=== PATIENT | male | born 1930 | race Caucasian/White ===

== ENCOUNTER 2016-05-30 10:15 | Day surgery (SDC) | payer MEDICARE, BC ==
--- NOTE | 2016-05-29 10:37 | NUR ---
NN PT STATES HE WAS NOT INSTRUCTED TO STOP TAKING HIS COUMADIN. I LOOKED IN HIS WRITTEN CHART FROM DR. MONTANEZ OFFICE, WHICH DID STATE THE PT WILL NOT NEED TO STOP WARFARIN FOR THIS SURGERY, SIGNED BY DR. DEL TORO.
--- NOTE | 2016-05-29 11:19 | NUR ---
KRISTYN PT HAS A [employer] IMPLANTABLE PACEMAKER/DEFIB. PT DOES NOT KNOW THE MODEL NUMBER. GENERAL INFORMATION PLACED IN CHART ABOUT [employer] PACEMAKER/DEFIB. Addendum: 05/29/16 at 1123 by JEFF MCKEON RN PT SEES DR. MANDEL [phone] Addendum: 05/29/16 at 1135 by JEFF MCKEON RN CARDIAC CLEARANCE OBTAINED FROM DR. YUNG MARTINS IN [place], [place]. [phone].
[~2016-05-30] VITALS: Ht 182.9 cm; Wt 67.9 kg
[~2016-05-30 10:15] MED LIST: CARV3.1227 PO; CEFAZOLIN 1 GRAM INJECTION IV ONE; DIGO250T72 PO; FENTANYL 100mcg/2ml INJECTION IV PRN; FURO40TA70 PO; LIDOCAINE 1% (10mg/ml) 2ml SDV INJ ONE; LR 1,000 ML IV SCH; MIDAZOLAM 5mg/5ml INJECTION IV PRN; MULT-1243 PO; POTA20TA69 PO; RANI150T7 PO; SIMV20TA80 PO; SULF1TAB42 PO; TAMS0.4C20 PO; VITA1TAB21 PO; WARF3TAB24 PO
[2016-05-30 10:38] VITALS: BP 141/72; PULSE 80; RESP 17; TEMP 98.1; O2SAT 99; Ht 182.9 cm; Wt 67.9 kg
--- OUTSIDE RECORDS SUMMARY | 2016-05-30 10:45 | XMS REPORT | Referral Summary ---
Author Author [facility] Organization [facility] Address Unknown Phone Unavailable Care Team Providers Care Jr. Systems Administrator Name Role Phone Brian Marrero Primary Care Physician [phone] Encounter VC Date(s): 11/16/14 - 11/16/14 [facility] [address] [place] [address] [place] [id number] Discharge Diagnosis: Open wound of arm Discharge Diagnosis: Post-operative state Discharge Diagnosis: History of basal cell carcinoma of skin Discharge Disposition: 01-Home or Self Care Attending Physician: Meliton Martínez MD Admitting Physician: Meliton Martínez MD Referring Physician: Brian Marrero MD Vital Signs Most recent to 1 oldest [Reference Range]: Temperature Tympanic 36.2 degC [36.6-38.1 degC] *LOW* (11/16/14 1:02 PM) Problem List Condition Effective Dates Status Health Status Informant Atrial fibrillation Active (disorder)(Confirmed ) Atrial Resolved fibrillation(Confirm ed) Benign essential Active hypertension (disorder)(Confirmed ) BPH (benign Resolved prostatic hypertrophy)(Confirm ed) CAD (coronary artery Resolved disease)(Confirmed) Heart Active failure(Confirmed) Hyperlipidemia(Confi Resolved rmed) Hypertension(Confirm Resolved ed) Lymphoma Resolved (clinical)(Confirmed ) Basal cell 01/29/14 Active cancer(Confirmed)1 Methicillin Active resistant Staphylococcus aureus(Confirmed)2 Pure Active hypercholesterolemia (disorder)(Confirmed ) 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 Allergies, Adverse Reactions, Alerts No Known Medication Allergies Medications carvedilol 3.125 mg oral tablet tabs, Oral, BID, 0 Refill(s) Start Date: 10/07/13 Status: Ordered Centrum Silver 1 caps, Oral, Daily, 0 Refill(s) Start Date: 09/07/14 Status: Ordered Coumadin 2 mg oral tablet tabs, Oral, Daily, 0 Refill(s) Start Date: 10/07/13 Status: Ordered digoxin 250 mcg (0.25 mg) oral tablet tabs, Oral, Daily, 0 Refill(s) Start Date: 10/07/13 Status: Ordered ibrutinib 140 mg oral capsule 420 mg 3 caps, Oral, Daily, 0 Refill(s) Start Date: 09/07/14 Status: Ordered Lasix 40 mg oral tablet mg tabs, Oral, BID, 0 Refill(s) Start Date: 10/07/13 Status: Ordered lisinopril 2.5 mg oral tablet See Instructions, Take 1 tablet by mouth every day., # 30 unknown unit, 1 Refill (s), eRx: [facility], Take 1 tablet by mouth every day. Start Date: 10/01/13 Status: Ordered Ocuvite 1 tabs, Oral, Daily, 0 Refill(s) Start Date: 09/07/14 Status: Ordered potassium chloride 20 mEq oral tablet, extended release tabs, Oral, BID, 0 Refill(s) Start Date: 02/23/14 Status: Ordered Protonix 40 mg, Oral, Daily, 0 Refill(s) Start Date: 09/07/14 Status: Ordered ranitidine 150 mg oral tablet 1 tabs, Oral, BID, 0 Refill(s) Start Date: 10/07/13 Status: Ordered simvastatin 20 mg oral tablet tabs, Oral, Bedtime (once a day), 0 Refill(s) Start Date: 10/07/13 Status: Ordered tamsulosin 0.4 mg oral capsule See Instructions, TAKE 1 CAPSULE AT BEDTIME, # 30 caps, eRx: [facility], TAKE 1 CAPSULE AT BEDTIME Start Date: 04/13/15 Status: Ordered Vitamin B Complex 100 1 tabs, Oral, Daily, 0 Refill(s) Start Date: 09/07/14 Status: Ordered Results No data available for this section Immunizations No data available for this section Procedures Procedure Date Related Diagnosis Body Site Excision of basal cell carcinoma1 09/20/14 Full thickness skin graft2 01/29/14 Excision of malignant lesion of skin of 06/02/13 extremities3 Completely excised 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 It begins in the basal cells, which are at the bottom of the outer skin layer (epidermis). CAUSES Sun exposure is the most common cause of basal cell carcinoma. Basal cell carcinoma occurs most often on parts of the body that are frequently exposed to the sun, including the: Scalp. Ears. Neck. Face. Arms. Backs of the hands. Legs. However, basal cell carcinoma can occur anywhere on the body. Rarely, tumors develop on areas not exposed to the sun. Other causes of basal cell carcinoma can include: Exposure to arsenic. Exposure to radiation. Certain genetic syndromes, such as xeroderma pigmentosum. RISK FACTORS People at highest risk for basal cell carcinoma include those with: Fair skin. Blonde or red hair. Blue, green, or campoverde eyes. Childhood freckling. Factors that increase your risk for basal cell carcinoma include: Sun exposure over long periods of time. Childhood sun exposure appears to be a more significant factor than sun exposure as an adult. Repeated sunburns. Use of tanning beds. Having a weakened immune system. SYMPTOMS Five signs of basal cell carcinoma are: An open sore that bleeds, oozes, or crusts. The sore may remain open for 3 or more weeks. This can be an early sign of basal cell carcinoma. Basal cell carcinoma can mimic a pimple that will not heal. A reddish or irritated area which may crust, itch, or cause discomfort. This may occur on areas expose d to the sun. These patches might be easier felt than seen. A shiny, pearly, or translucent bump that is pink, red, or white. The bump may also be holder, black, or brown, especially in dark haired people. These bumps can be confused with moles. A pink growth with a slightly elevated, rolled border, and a crusted indentation in the center. As the growth slowly enlarges, tiny blood vessels may develop on the surface. A scar-like white, yellow, or waxy area that looks like shiny, stretched skin. It often has irregular borders. This may be a sign of more aggressive basal cell carcinoma. DIAGNOSIS Your caregiver may be able to tell what is wrong by doing a physical exam. Often , a tissue sample (biopsy) is also taken. The tissue is examined under a microscope. TREATMENT The treatment for basal cell carcinoma depends on the type, size, location, and number of tumors. Possible treatments include: Mohs surgery. This is a procedure done by a skin doctor (olive packer or Mohs surgeon) in his or her office. The cancerous cells are removed layer by layer. This treatment has a high cure rate. Surgical removal of the tumor. Freezing the tumor with liquid nitrogen (cryosurgery). Plastic surgery to remove the tumor, in the case of large tumors. Radiation. This may be used for tumors on the face. Photodynamic therapy. A chemical cream is applied to the skin and light exposure is used to activate the chemical. Chemical treatments, such as imiquimod cream and interferon injections. This may be used to remove superficial tumors with minimal scarring. Electrodesiccation and curettage. This involves alternately scraping and burning the tumor, using an electric current to control bleeding. Basal cell carcinoma can almost always be cured. It rarely spreads to other areas of the body (metastasizes). Basal cell carcinoma may come back at the same location (recur), but it can be treated again if this occurs. PREVENTION Avoid the sun between 10:00 a.m. and 4:00 pm when it is the strongest. Use a sunscreen or sunblock with a sun protection factor of 30 or greater. Apply sunscreen at least 30 minutes before exposure to the sun. Reapply sunscreen every 2 to 4 hours while you are outside, after swimming , and after excessive sweating. Always wear protective hats, clothing, and sunglasses with ultraviolet protection. Avoid tanning beds. HOME CARE INSTRUCTIONS Avoid unprotected sun exposure. Follow your caregiver's instructions for self-exams. Look for new spots or changes in your skin. Keep all follow-up appointments as directed by your caregiver. SEEK MEDICAL CARE IF: You notice any new spots or changes in your skin. You have had a basal cell carcinoma tumor removed and you notice a new growth in the same location. Document Released: 09/15/2003 Document Revised: 09/09/2012 Document Reviewed: [facility] Patient Information 2015 [employer] [facility]. This information is not intended to replace advice given to you by your health care provider. Make sure you discuss any questions you have with your health care provider. No follow up information was provided. Extracted from: Title: Office Visit Note Author: Meliton Martínez MD Date: 11/16/14 Assessment/Plan History of basal cell carcinoma of skin Ordered: Postoperative Est 45576 Open wound of arm Ordered: Postoperative Est [id number] Post-operative state Ordered: Postoperative Est [id number] Plan: Chemical cauterization. Local wound care. The area of hypergranulation was treated with Silver Nitrate. Wound was covered with Xeroform gauze. Instructions/supplies given to patient and . Small fishnet/Tubegauze utilized to hold dressing in place. Patient instructed to avoid use of tape to prevent further excoriation of skin
--- OUTSIDE RECORDS SUMMARY | 2016-05-30 10:45 | XMS REPORT | Continuity of Care Document ---
Author Author [facility] Organization [facility] Address Unknown Phone Unavailable Support Name Relationship Address Phone ALFONZO MO MD Caregiver [address] [place] [phone] ARIS LEA FACS, MD Caregiver [address] [place] [address] [address] [place] [phone] YUNG MARTINS Caregiver [address] [place] [address] [place] WHIT[place]IDE Next Of Kin [address] [facility] [address] [place], [place] [address] Insurance Providers Payer Name Policy Number Subscriber Name Relationship Medicare [id number] Jacobo Whiteside 19 Self [facility] [id number] Jacobo Whiteside 19 Self Advance Directives Directive Response Recorded Date/Time Ordered Resuscitation Status Full Code 01/28/14 10:23am Resuscitation Documents on File No 01/28/14 9:39am Problems No known problems or medical conditions. Medications Medication Dose Route Sig Days/Qty Instructions Order Date Discontinued Date Status Carvedilol 12.5 Mg PO TWICE A DAY 08/06/09 08/06/09 Discontinued Warfarin Sodium 2 Mg PO DAILY 04/28/09 06/12/09 Discontinued Diltiazem Hcl 240 Mg PO DAILY 05/09/08 04/28/09 Discontinued Tamsulosin Hcl 0.4 Mg PO BEDTIME 12/26/09 Active [[id number] [id number]] 125 Mcg PO DAILY 05/09/08 04/28/09 Discontinued Ascorbic Acid 250 Mg PO DAILY 07/25/09 08/06/09 Discontinued Multivitamins W-Minerals/Lut 0.5 Tab PO DAILY 08/06/09 09/13/09 Discontinued Digoxin 250 Mcg IJ DAILY 04/28/09 06/12/09 Discontinued Furosemide 40 Mg IJ DAILY 04/28/09 06/12/09 Discontinued Aspirin 81 Mg PO DAILY 08/06/09 09/13/09 Discontinued Simvastatin 20 Mg PO BEDTIME 12/26/09 Active Potassium Chloride 20 Meq PO DAILY 2 Qty 12/26/09 Active Furosemide 40 Mg PO DAILY 12/26/09 Active Digoxin 250 Mcg PO DAILY 12/26/09 Active Warfarin Sodium 1 Tab PO DAILY 08/06/09 08/06/09 Discontinued Magnesium 250 Mg PO DAILY 08/06/09 08/06/09 Discontinued Sulfamethoxazole/Trimethoprim 1 Tab PO TWICE A DAY 07/25/09 Discontinued Carvedilol 3.125 Mg PO DAILY 12/26/09 Active Warfarin Sodium 2 Mg PO DAILY 12/23/09 Active Magnesium 200 Mg PO TWICE A DAY 08/06/09 09/13/09 Discontinued Warfarin Sodium 2 Mg PO EVERY OTHER DAY 12/23/09 08/20/10 Discontinued Spironolactone 25 Mg PO DAILY 12/26/09 08/20/10 Discontinued Lisinopril 2.5 Mg PO DAILY 01/28/14 Active Ranitidine HCl 150 Mg PO BEDTIME Take 1 tablet, by mouth, 1 time a day ( at BEDTIME). 01/28/14 Active Ibrutinib 420 Mg PO GIVE AT NOON 01/28/14 Active Social History Social History Problem Response Recorded Date/Time Smoking Status Former smoker 01/28/2014 9:33am When did patient STOP smoking? AGE 40'S 01/28/2014 9:33am Chewing Tobacco Status No 01/28/2014 9:33am Hx Substance Use No 01/28/2014 9:33am Hx Alcohol Use Y OCCASIONALWINE 3X/WEEK 01/28/2014 9:33am Has the pt used tobacco in the last 12 months No 01/28/2014 9:33am Hospital Discharge Instructions No hospital discharge instructions. Plan of Care No plan of care. Functional Status No functional status results. Allergies, Adverse Reactions, Alerts Allergen Type Severity Reaction Status Last Updated No Known Drug Allergies Allergy Unknown Active 08/20/10 Immunizations Name Given Type Hx Influenza Vaccination Y FALL 2013 Historical Hx Pneumococcal Vaccination Y 2008 Historical Hx Influenza Vaccination Y FALL 2013 Historical Vital Signs Acute Vital Signs Vital Response Date/Time Temperature (Fahrenheit) 97.6 deg F (96.8 - 99.1) Temperature (Calculated Celsius) 36.45003 degrees C (36.0 - 37.3) Temperature Source Axillary Pulse Rate (adult) 84 bpm (60 - 100) Respiratory Rate 14 breaths/min (10 - 20) O2 Sat by Pulse Oximetry 97 % (90 - 100) Oxygen Delivery Method Room Air Blood Pressure 114/67 mm Hg Blood Pressure Source Automatic Cuff Height 6 ft 0 in Weight 158 lb Body Mass Index 21.0 kg/m^2 Results Test Source Date Result Interp. Ref. Range Comments AFB Broth Culture/Smear August 16, 2009 12:00am Sent out - Acid Fast Bacilli Culture (LAB) June 13, 2009 10:35am Sent out - -- - 06/14/09 1436 ---CUAFB previously reported as: SENT OUT Activated Partial Thromboplast Time August 24, 2010 11:30am 35.4 SEC DN 24 -36 Alanine Aminotransferase (ALT/SGPT) August 21, 2010 4:50am 34 U/L N 21-72 Albumin August 21, 2010 4:50am 2.9 G/DL L 3.5-5.0 Albumin/Globulin Ratio August 21, 2010 4:50am 1.1 RATIO N 1.1-2.2 Alkaline Phosphatase August 21, 2010 4:50am 156 U/L H 38-126 Anion Gap January 29, 2014 10:45am 8 MEQ/L N 5-15 COMMENT PRE-OP WILL CALL Aspartate Amino Transf (AST/SGOT) August 21, 2010 4:50am 32 U/L N 17-59 B-Type Natriuretic Peptide August 24, 2010 4:10am 1782 PG/ML H 15-100 BUN/Creatinine Ratio January 29, 2014 10:45am 13 RATIO N 6-26 COMMENT PRE-OP WILL CALL Band Neutrophils # February 10, 2010 11:15am 0.4 T/MM3 - COMMENT TO SCU AT 1200 Band Neutrophils % February 10, 2010 11:15am 5.0 % DN 0-6 COMMENT TO SCU AT 1200 Basophils # (Auto) January 29, 2014 10:45am 0.0 T/MM3 N 0-0.2 COMMENT PRE-OP WILL CALL Basophils # (Manual) February 23, 2009 8:39am 0.0 T/MM3 N 0-0.2 Basophils % (Manual) February 23, 2009 8:39am 0.0 % N 0-2 Basophils (%) (Auto) January 29, 2014 10:45am 0.3 % N 0-2 COMMENT PRE- OP WILL CALL Blood Urea Nitrogen January 29, 2014 10:45am 14.0 MG/DL N 9-20 COMMENT PRE-OP WILL CALL Body Fluid Amylase December 05, 2009 12:00am Sent out - Body Fluid Band Neutrophils December 05, 2009 12:00am 0 % - Body Fluid Basophils December 05, 2009 12:00am 0 % - Body Fluid Color December 05, 2009 12:00am Light yellow - Body Fluid Eosinophils December 05, 2009 12:00am 0 % - Body Fluid Glucose December 05, 2009 12:00am Sent out - Body Fluid Lactate Dehydrogenase August 16, 2009 12:00am Ref lab rpt scanned - --- 08/17/09 0843 ---BFLDH previously reported as: SEND OUT Body Fluid Lymphocytes December 05, 2009 12:00am 23 % - Body Fluid Monocytes December 05, 2009 12:00am 0 % - Body Fluid Neutrophils December 05, 2009 12:00am 77 % - Body Fluid Specific [place] December 05, 2009 12:00am 1.013 - Body Fluid Total Protein December 05, 2009 12:00am Send out - Body Fluid Turbidity December 05, 2009 12:00am Slightly cloudy - Body Fluid Type December 05, 2009 12:00am Pleural fluid - Body Fluid pH August 16, 2009 12:00am Ref lab rpt scanned - --- 0843 ---BFPH previously reported as: SEND OUT Calcium Level January 29, 2014 10:45am 9.4 MG/DL N 8.4-10.2 COMMENT PRE-OP WILL CALL Calculated Osmolality January 29, 2014 10:45am 267 MOSM/KG N 261-280 COMMENT PRE-OP WILL CALL Carbon Dioxide Level January 29, 2014 10:45am 33 MEQ/L H 22-30 COMMENT PRE-OP WILL CALL Chemistry Specimen Hemolysis January 29, 2014 10:45am < 15 0-25 0-25 : No Hemolysis.26-70: Slight Hemolysis - can falsely elevate K and Urine Protein. 71-285: Moderate Hemolysis - can falsely elevate K, Troponin I, CA 19-9, PTH, CSF GLucose, and Urine Protein, and can falsely decrease Phenytoin. 286-999: Gross Hemolysis - can falsely elevate K, Troponin I, CA 19-9, PTH, CSF Glucose, and Urine Protine, and can falsely decrease Phenytoin. Recommend specimen recollection. Chloride Level January 29, 2014 10:45am 97 MEQ/L L 98-107 COMMENT PRE- OP WILL CALL Conjugated Bilirubin August 20, 2010 11:10am 0.00 MG/DL N 0.00-0.30 Creatine Kinase MB May 10, 2008 2:30am 0.0 NG/ML N 0-3.4 Creatinine January 29, 2014 10:45am 1.1 MG/DL N 0.8-1.5 COMMENT PRE- OP WILL CALL Differential Total Cells Counted December 26, 2009 1:17pm 100 % - Digoxin Level August 20, 2010 11:10am 1.2 NG/ML N 0.8-2.0 EKG May 09, 2008 10:22am Complete - Eosinophils # (Auto) January 29, 2014 10:45am 0.0 T/MM3 N 0-0.5 COMMENT PRE-OP WILL CALL Eosinophils # (Manual) July 25, 2009 8:56am 0.2 T/MM3 N 0-0.5 COMMENT TO SCU AT 0830 Eosinophils % (Manual) July 25, 2009 8:56am 3.0 % N 0-4 COMMENT TO SCU AT 0830 Eosinophils (%) (Auto) January 29, 2014 10:45am 0.4 % N 0-4 COMMENT PRE-OP WILL CALL Globulin August 21, 2010 4:50am 2.6 G/DL N 2.4-3.6 Glomerular Filtration Rate Calc January 29, 2014 10:45am 64 - COMMENT PRE-OP WILL CALL Glucose Level January 29, 2014 10:45am 97 MG/DL N 75-110 COMMENT PRE- OP WILL CALL Hematocrit January 29, 2014 10:45am 43.0 % N 41-53 COMMENT PRE-OP WILL CALL Hemoglobin January 29, 2014 10:45am 14.0 GM/DL N 13.5-17.5 COMMENT PRE -OP WILL CALL Icterus Index January 29, 2014 10:45am < 2 0-7 COMMENT PRE-OP WILL CALL Immature Granulocyte # (Auto) January 29, 2014 10:45am 0.03 T/MM3 N 0.00-0.03 COMMENT PRE-OP WILL CALL Immature Granulocyte % (Auto) January 29, 2014 10:45am 0.3 % N 0.0-0.5 COMMENT PRE-OP WILL CALL Immunoglobulin G February 10, 2013 8:29am 363.31 MG/DL L 700-1600 Iron Level August 07, 2009 4:54am 41 UG/DL L 49-181 Lab Scanned Report February 10, 2013 9:07am LAB TEST FORM REQUEST [id number] - Lymphocytes # (Auto) January 29, 2014 10:45am 4.3 T/MM3 N 1-4.8 COMMENT PRE-OP WILL CALL Lymphocytes # (Manual) February 10, 2010 11:15am 0.3 T/MM3 L 1-4.8 COMMENT TO SCU AT 1200 Lymphocytes % (Manual) February 10, 2010 11:15am 3.0 % L 23-45 COMMENT TO SCU AT 1200 Lymphocytes (%) (Auto) January 29, 2014 10:45am 40.3 % N 23-45 COMMENT PRE-OP WILL CALL Mean Corpuscular Hemoglobin January 29, 2014 10:45am 27.9 UUG N 26-34 COMMENT PRE-OP WILL CALL Mean Corpuscular Hemoglobin Concent January 29, 2014 10:45am 32.6 GM/DL N 31-37 COMMENT PRE-OP WILL CALL Mean Corpuscular Volume January 29, 2014 10:45am 85.7 UM3 N 80-100 COMMENT PRE-OP WILL CALL Mean Platelet Volume January 29, 2014 10:45am 12.5 UM3 H 9.4-12.4 COMMENT PRE-OP WILL CALL Metamyelocytes # February 10, 2010 11:15am 0.1 T/MM3 - COMMENT TO SCU AT 1200 Metamyelocytes % February 10, 2010 11:15am 1.0 % H 0-0 COMMENT TO SCU AT 1200 Miscellaneous Cytology December 05, 2009 12:00am Send out - Monocytes # (Auto) January 29, 2014 10:45am 0.7 T/MM3 N 0-0.8 COMMENT PRE-OP WILL CALL Monocytes # (Manual) February 10, 2010 11:15am 0.7 T/MM3 N 0-0.8 COMMENT TO SCU AT 1200 Monocytes % (Manual) February 10, 2010 11:15am 8.0 % N 0-9.0 COMMENT TO SCU AT 1200 Monocytes (%) (Auto) January 29, 2014 10:45am 6.2 % N 0-9.0 COMMENT PRE-OP WILL CALL Neutrophils # (Auto) January 29, 2014 10:45am 5.6 T/MM3 N 1.8-7.7 COMMENT PRE-OP WILL CALL Neutrophils # (Manual) February 10, 2010 11:15am 7.1 T/MM3 N 1.8-7.7 COMMENT TO SCU AT 1200 Neutrophils % (Manual) February 10, 2010 11:15am 83.0 % H 33-66 COMMENT TO SCU AT 1200 Neutrophils (%) (Auto) January 29, 2014 10:45am 52.5 % N 33-66 COMMENT PRE-OP WILL CALL Platelet Count January 29, 2014 10:45am 126 T/MM3 L 130-400 COMMENT PRE-OP WILL CALL Potassium Level January 29, 2014 10:45am 4.4 MEQ/L N 3.6-5 COMMENT PRE -OP WILL CALL Prothromb Time International Ratio January 29, 2014 10:45am 1.69 H 0.81 -1.09 THERAPUTIC RANGE=2.00-3.00 FOR ANTI-THROMBOSIS THERAPUTIC RANGE=2.50- 3.50 FOR IMPLANTED VALVE RDW Standard Deviation January 29, 2014 10:45am 42.9 FL N 36.9-50.2 COMMENT PRE-OP WILL CALL Reactive Lymphocytes # December 26, 2009 1:17pm 0.1 T/MM3 H 0-0 Reactive Lymphocytes % December 26, 2009 1:17pm 1.0 % H 0-0 Red Blood Count January 29, 2014 10:45am 5.02 M/MM3 N 4.50-5.90 COMMENT PRE-OP WILL CALL Rouleau December 26, 2009 1:17pm Present - Sodium Level January 29, 2014 10:45am 138 MEQ/L N 134-144 COMMENT PRE- OP WILL CALL Total Bilirubin August 21, 2010 4:50am 0.80 MG/DL N 0.20-1.30 Total Protein August 21, 2010 4:50am 5.5 G/DL L 6.3-8.2 Troponin I August 20, 2010 11:10am 0.030 ng/ml N 0-0.12 Turbidity January 29, 2014 10:45am < 20 0-20 COMMENT PRE-OP WILL CALL Unconjugated Bilirubin August 20, 2010 11:10am 0.50 MG/DL N 0.00-1.10 Urine Bacteria September 13, 2009 3:31pm 1+ H - Has specimen been collected/ obtained? Y Urine Bilirubin August 20, 2010 11:49am Negative - Has specimen been collected/obtained? Y Urine Blood August 20, 2010 11:49am Trace H - Has specimen been collected/ obtained? Y Urine Collection Type August 20, 2010 11:49am Voided - Has specimen been collected/obtained? Y Urine Color August 20, 2010 11:49am Yellow - Has specimen been collected /obtained? Y Urine Culture Indicated September 13, 2009 3:31pm Cult set up - Has specimen been collected/obtained? Y Urine Glucose (UA) August 20, 2010 11:49am Negative - Has specimen been collected/obtained? Y Urine Ketones August 20, 2010 11:49am Negative - Has specimen been collected/obtained? Y Urine Leukocyte Esterase August 20, 2010 11:49am Negative - Has specimen been collected/obtained? Y Urine Mucus September 13, 2009 3:31pm Present - Has specimen been collected/obtained? Y Urine Nitrite August 20, 2010 11:49am Negative - Has specimen been collected/obtained? Y Urine Protein August 20, 2010 11:49am Negative - Has specimen been collected/obtained? Y Urine RBC August 20, 2010 11:49am 0-1 /HPF - Has specimen been collected /obtained? Y Urine Specific [place] August 20, 2010 11:49am 1.010 L - Has specimen been collected/obtained? Y Urine Squamous Epithelial Cells September 13, 2009 3:31pm Few - Has specimen been collected/obtained? Y Urine Turbidity August 20, 2010 11:49am Slt cldy - Has specimen been collected/obtained? Y Urine Urobilinogen August 20, 2010 11:49am Normal EU/DL - Has specimen been collected/obtained? Y Urine WBC September 13, 2009 3:31pm 20-30 /HPF H - Has specimen been collected/obtained? Y Urine pH August 20, 2010 11:49am 7.0 - Has specimen been collected/ obtained? Y White Blood Count January 29, 2014 10:45am 10.6 T/MM3 N 4.5-11.0 COMMENT PRE-OP WILL CALL Fungal Culture Body Fluid-Pleural Fluid August 16, 2009 12:00am Urine Culture Urine, Clean Catch Voided September 13, 2009 3:52pm Procedures Procedure Status Date Provider(s) Excision, lesion completed 01/29/14 ARIS LEA MD, FACS, CWS
--- OUTSIDE RECORDS SUMMARY | 2016-05-30 10:45 | XMS REPORT | Referral Summary ---
Author Author [facility] Organization [facility] Address Unknown Phone Unavailable Care Team Providers Care Mixer Lever Operator Name Role Phone Brian Marrero Primary Care Physician [phone] Encounter VC Date(s): 12/07/14 - 12/07/14 [facility] [address] [place] [address] [place] [address] Discharge Diagnosis: Post-operative state Discharge Diagnosis: History of basal cell carcinoma of skin Discharge Disposition: 01-Home or Self Care Attending Physician: Meliton Martínez MD Admitting Physician: Meliton Martínez MD Referring Physician: Brian Marrero MD Vital Signs Most recent to 1 oldest [Reference Range]: Temperature Tympanic 37.1 degC [36.6-38.1 degC] (12/07/14 3:20 PM) Problem List Condition Effective Dates Status [...] 2Ear from Ear L collected 02/16/14 11:36:00 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 [...] 30 unknown unit, 1 Refill (s), eRx: [facility], Take 1 tablet by mouth every [...] 1 CAPSULE AT BEDTIME, # 30 caps, 4 Refill(s), eRx: [facility], TAKE 1 CAPSULE AT BEDTIME Start Date: 06/17/15 Status: Ordered Vitamin B Complex 100 1 [...] PLEURX CATHETER PLACED BY DR. 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 This information is not intended to replace advice given to you by your health care provider. Make sure you discuss any questions you have with your health care provider. No follow up information was provided. Extracted from: Title: Office Visit Note Author: Meliton Martínez MD Date: 12/07/14 Assessment/Plan 1.History of basal cell carcinoma of skin Ordered: Postoperative Est [id number] 2.Post-operative state Ordered: Postoperative Est [id number] Plan:A few areas of hypergranulation tissue were treated withsilver nitrate applicator sticks. Patient was instructed toleave theall areas of concern"open to air". He was instructedto return to the officeat a 3 week intervalif the area of concern has not completely healed. If area has completely healed as expected he was instructed to call and cancelfollow-up visit.
--- OUTSIDE RECORDS SUMMARY | 2016-05-30 10:45 | XMS REPORT | CCD ---
Author Author HANSEL LANDAVERDE Organization Unknown Address [address], [place] [id number] Phone 0 Care Team Providers Care Brand Lead Name Role Phone Harrison MURPHY Attending Physician 0 Vital Signs Unknown or Not Available. Allergies Allergy Code Allergy Type Reaction Status NKDA - NO KNOWN DRUG ALLERGIES 0 Drug allergy Active Procedures Unknown or Not Available. History of Immunizations Immunization Code Date pneumococcal polysaccharide PPV23 33 03/2005 Influenza, high dose seasonal 135 2014 Problems Problem Code Start Date Resolved Date Status Cellulitis of right upper limb 398744139 03/27/2015 Active Methicillin resistant Staphylococcus aureus infection, unspecified site 079911460 03/31/2015 Active Elevated INR 885306173 03/31/2015 Active H/O: atrial fibrillation 122933286 2015 Active History of artificial heart valve 489538517 03/31/2009 Active Non Hodgkin lymphoma 915635794 Active Results Unknown or Not Available. Active Medications Medication Code Dose Units Frequency Route Modification Start Date/Time Lisinopril 2.5MG Oral Tablet 319896 1 TABLET DAILY BY MOUTH 04/05/2015 12:39 Prescription Detail TAKE 1 TABLET BY MOUTH DAILY Coumadin 2MG Oral Tablet 456288 1 TABLET DAILY BY MOUTH 04/05/2015 12:36 Prescription Detail TAKE 1 TABLET BY MOUTH DAILY Mapap 325MG Oral Tablet [id number] 650 MILLIGRAMS PRN Q6H BY MOUTH 04/05/2015 12:36 Prescription Detail TAKE 650 MILLIGRAMS BY MOUTH PRN Q6H Protonix 40MG Oral Tablet, Enteric Coated 087885 40 MILLIGRAMS QD BY MOUTH 04/05/2015 12:36 Prescription Detail TAKE 40 MILLIGRAMS BY MOUTH QD Sulfamethoxazole/Trimethoprim 800MG-160MG Oral Tablet 414703 1 TABLET TWICE A DAY BY MOUTH 2015 12:36 Prescription Detail TAKE 1 TABLET BY MOUTH TWICE A DAY Carvedilol 6.25MG Oral Tablet 922855 6.25 MILLIGRAMS TWICE A DAY ORAL 04/02/2014 08:38 Prescription Detail 6.25 MILLIGRAMS ORAL TWICE A DAY Centrum Silver [id number] Oral Tablet 532551 1 EACH DAILY ORAL 04/02/2014 08:38 Prescription Detail 1 EACH ORAL DAILY Digoxin 0.25MG Oral Tablet 740496 0.25 MILLIGRAMS DAILY ORAL 04/02/2014 08:38 Prescription Detail 0.25 MILLIGRAMS ORAL DAILY Furosemide 40MG Oral Tablet 766318 40 MILLIGRAMS DAILY ORAL 04/02/2014 08:38 Prescription Detail 40 MILLIGRAMS ORAL DAILY Ocuvite 60MG-0.73BL-4575GE-0 Oral Tablet 547623 1 EACH DAILY ORAL 04/02/2014 08:38 Prescription Detail 1 EACH ORAL DAILY Potassium Chloride 20MEQ Oral Tablet, Extended Release 871630 20 MEQ DAILY ORAL 04/02/2014 08:38 Prescription Detail 20 MEQ ORAL DAILY Simvastatin 20MG Oral Tablet 968547 20 MILLIGRAMS AT BEDTIME ORAL 04/02/2014 08:38 Prescription Detail 20 MILLIGRAMS ORAL AT BEDTIME Tamsulosin Hydrochloride 0.4MG Oral Capsule 556210 0.4 MILLIGRAMS DAILY ORAL 04/02/2014 08:38 Prescription Detail 0.4 MILLIGRAMS ORAL DAILY Medications Administered During Visit Unknown or Not Available. Encounters Encounter Diagnosis Diagnosis Code Start Date Other specified local infections of the skin and subcutaneous tissue L0889 12/15/2015 Social History Smoking Status Code Start Date End Date Unknown if ever smoked [id number] Patient Decision Aids Unknown or Not Available. Discharge Instructions You were admitted to [facility] on 12/15/2015 08:27 with a principal diagnosis of Oth local infections of the skin and subcutaneous tissu You were discharged from [facility] on 12/15/2015 08:27 Should you have any questions prior to discharge, please contact a member of your healthcare team. If you have left the hospital and have any questions, please contact your primary care physician. Chief Complaint and Reason For Visit Chief Complaint Date of Onset WC Function Status Unknown or Not Available. Plan of Care Unknown or Not Available. Referral/Transition of Care Unknown or Not Available.
--- OUTSIDE RECORDS SUMMARY | 2016-05-30 10:45 | XMS REPORT | Referral Summary ---
Author Author [facility] Organization [facility] Address Unknown Phone Unavailable Care Team Providers Care Staff Respiratory Therapist Name Role Phone Brian Marrero Primary Care Physician [phone] Encounter VC Date(s): 10/05/14 - 10/05/14 [facility], [address] [place] [address]- Discharge Disposition: 01-Home or Self Care Attending Physician: Mic Sandoval MD Admitting Physician: Meliton Martínez MD Referring Physician: Meliton Martínez MD Vital Signs Most recent to 1 oldest [Reference Range]: Temperature Tympanic 36.9 degC [36.6-38.1 degC] (10/05/14 9:47 AM) Problem List Condition Effective Dates Status Health [...] 2Ear from Ear L collected 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 [...] 30 unknown unit, 1 Refill (s), eRx: [facility], Take 1 tablet by mouth [...] CAPSULE AT BEDTIME, # 30 caps, eRx: [facility], TAKE 1 CAPSULE AT BEDTIME [...] PLEURX CATHETER PLACED BY DR. 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
--- OUTSIDE RECORDS SUMMARY | 2016-05-30 10:46 | XMS REPORT | CCD ---
Author Author HANSEL LANDAVERDE Organization Unknown Address [address] [place], [place] [id number] Phone 0 Care Team Providers Care Sagger Preparer Name Role Phone Harrison MURPHY Attending Physician [...] Date Status Cellulitis of right upper limb 177175595 03/27/2015 Active Methicillin resistant Staphylococcus aureus infection, unspecified site 923112351 03/31/2015 Active Elevated INR 841906381 03/31/2015 Active H/O: atrial fibrillation 167789126 2015 Active History of artificial heart valve 877318141 03/31/2009 Active Non Hodgkin lymphoma 977866489 Active Results COMP METABOLIC - Collect Date/Time: 11/17/2015 08:25 Test Name Code Test Result Test Units Test Ref Range GLUCOSE 116 mg/dL L=70 H=110 BUN 18 mg/dL L=7 H=18 CREATININE 1.18 mg/ dL L=0.60 H=1.30 AGE 85 YEARS GFR 58.8 SODIUM 135 mmol/L L=136 H=145 POTASSIUM 4.0 mmol/ L L=3.5 H=5.1 CHLORIDE 99 mmol/L L=98 H=107 CO2 30 mmol/L L=21 H=32 CALCIUM 8.8 mg/dL L=8.5 H=10.1 AST 20 U/L L=15 H=37 ALT 26 U/L L=12 H=78 ALKALINE PHOS 67 U/ L L=46 H=116 TOTAL PROTEIN 6.4 g/ dL L=6.4 H=8.2 ALBUMIN 3.3 g/dL L=3.4 H=5.0 TOTAL BILI 0.60 mg/ dL L=0.00 H=1.00 PREALBUMIN - Collect Date/Time: 11/17/2015 08:25 Test Name Code Test Result Test Units Test Ref Range PREALBUMIN 22.1 mg/ dL L=18.0 H=35.7 CBC W/ DIFF - Collect Date/Time: 11/17/2015 08:25 Test Name Code Test Result Test Units Test Ref Range WBC 11.0 x10^3 L=4.8 H=10.8 RBC 4.66 x10^6 L=4.70 H=6.10 HEMOGLOBIN 12.1 g/ dL L=14.0 H=18.0 HEMATOCRIT 36.2 % L=42.0 H=52.0 MCV 78 fL L=80 H=100 MCH 26.0 pg L=27.0 H=33.0 MCHC 33.5 g/dL L=33.0 H=37.0 RDW 14.9 % L=11.5 H=14.5 PLATELETS 147 x10^3 L=150 H=450 MPV 9.5 fL L=7.8 H=11.0 NEUTROPHILS 86.4 % L=40.0 H=80.0 LYMPHOCYTES 9.8 % L=20.0 H=45.0 MONOCYTES 3.5 % L=0.0 H=10.0 EOSINOPHILS 0.3 % L=0.0 H=5.0 BASOPHILS 0.0 % L=0.0 H=2.0 SEG 82 %% L=40 H=80 BAND 0 %% L=0 H=5 LYMPH 11 %% L=20 H=45 MONO 6 %% L=0 H=10 EOS 0 %% L=0 H=5 BASO 0 %% L=0 H=2 ATYP LYMPH 1 %% L=0 H=10 META 0 %% L=0 H=1 REFLEX MAN DIFF YES N/A RBC MORPHOLOGY SEE BELOW N/A ANISO SLIGHT N/A NORMAL: NONE SEEN POIK NONE SEEN N/A NORMAL: NONE SEEN HYPO SLIGHT N/A NORMAL: NONE SEEN MICRO SLIGHT N/A NORMAL: NONE SEEN MACRO NONE SEEN N/A NORMAL: NONE SEEN POLY NONE SEEN N/A NORMAL: NONE SEEN TOXIC GRAN NONE SEEN N/A NORMAL: NONE SEEN NUCLEATED RBC NONE SEEN N/A NORMAL: NONE SEEN SED RATE AUTO - Collect Date/Time: 11/17/2015 08:25 Test Name Code Test Result Test Units Test Ref Range SED RATE 29 mm/HR L=0 H=10 Active Medications Medication Code Dose Units Frequency Route Modification Start Date/Time Lisinopril 2.5MG Oral Tablet 218882 1 TABLET DAILY BY MOUTH 04/05/2015 12:39 Prescription Detail TAKE 1 TABLET BY MOUTH DAILY Coumadin 2MG Oral Tablet 357925 1 TABLET DAILY BY MOUTH 04/05/2015 12:36 Prescription Detail TAKE 1 TABLET BY MOUTH DAILY Mapap 325MG Oral Tablet 874824 650 MILLIGRAMS PRN Q6H BY MOUTH 04/05/2015 12:36 Prescription Detail TAKE 650 MILLIGRAMS BY MOUTH PRN Q6H Protonix 40MG Oral Tablet, Enteric Coated 571177 40 MILLIGRAMS QD BY MOUTH 04/05/2015 12:36 Prescription Detail TAKE 40 MILLIGRAMS BY MOUTH QD Sulfamethoxazole/Trimethoprim 800MG-160MG Oral Tablet 480510 1 TABLET TWICE A DAY BY MOUTH 2015 12:36 Prescription Detail TAKE 1 TABLET BY MOUTH TWICE A DAY Carvedilol 6.25MG Oral Tablet 824482 6.25 MILLIGRAMS TWICE A DAY ORAL 04/02/2014 08:38 Prescription Detail 6.25 MILLIGRAMS ORAL TWICE A DAY Centrum Silver [id number] Oral Tablet 048409 1 EACH DAILY ORAL 04/02/2014 08:38 Prescription Detail 1 EACH ORAL DAILY Digoxin 0.25MG Oral Tablet 329418 0.25 MILLIGRAMS DAILY ORAL 04/02/2014 08:38 Prescription Detail 0.25 MILLIGRAMS ORAL DAILY Furosemide 40MG Oral Tablet 612128 40 MILLIGRAMS DAILY ORAL 04/02/2014 08:38 Prescription Detail 40 MILLIGRAMS ORAL DAILY Ocuvite 60MG-[id number]-5 Oral Tablet 184838 1 EACH DAILY ORAL 04/02/2014 08:38 Prescription Detail 1 EACH ORAL DAILY Potassium Chloride 20MEQ Oral Tablet, Extended Release 790808 20 MEQ DAILY ORAL 04/02/2014 08:38 Prescription Detail 20 MEQ ORAL DAILY Simvastatin 20MG Oral Tablet 742857 20 MILLIGRAMS AT BEDTIME ORAL 04/02/2014 08:38 Prescription Detail 20 MILLIGRAMS ORAL AT BEDTIME Tamsulosin Hydrochloride 0.4MG Oral Capsule 695214 0.4 MILLIGRAMS DAILY ORAL 04/02/2014 08:38 Prescription Detail 0.4 MILLIGRAMS ORAL DAILY Medications Administered During Visit Unknown or Not Available. Encounters Encounter Diagnosis Diagnosis Code Start Date Other specified local infections of the skin and subcutaneous tissue L0889 11/17/2015 Social History Smoking Status Code Start Date End Date Unknown if ever smoked [id number] Patient Decision Aids Unknown or Not Available. Discharge Instructions You were admitted to [facility] on 11/17/2015 08:19 with a principal diagnosis of Oth local infections of the skin and subcutaneous tissu You had the following tests done: CBC W / DIFF COMP METABOLIC PREALBUMIN SED RATE AUTO You were discharged from [facility] on 11/17/2015 08:19 Should you have any questions prior to [...]
--- OUTSIDE RECORDS SUMMARY | 2016-05-30 10:46 | XMS REPORT | Referral Summary ---
Author Author [facility] Organization [facility] Address Unknown Phone Unavailable Care Team Providers Care Pouch Maker Name Role Phone Brian Marrero Primary Care Physician [phone] Encounter VC Date(s): 09/20/14 - 09/20/14 [facility] [address] [place] [address] [place] [address] Discharge Disposition: 01-Home or Self Care Attending Physician: Meliton Martínez MD Admitting Physician: Meliton Martínez MD Vital Signs No data available for this section Problem List Condition Effective Dates Status Health [...] 2Ear from Ear L collected 02/16/14 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 [...] 30 unknown unit, 1 Refill (s), eRx: [facility], Take 1 tablet by mouth [...] 1 CAPSULE AT BEDTIME, # 30 caps, 2 Refill(s), eRx: [facility], TAKE 1 CAPSULE AT BEDTIME Start Date: 11/30/14 Status: Ordered Vitamin B Complex 100 1 tabs, Oral, Daily, 0 Refill(s) Start Date: 09/07/14 Status: Ordered Results No data available for this section Immunizations No data available for this section Procedures Procedure Date Related Diagnosis Body Site Excision of basal cell carcinoma1 09/20/14 Excision, malignant lesion including margins, 09/20/14 scalp, neck, hands, feet, genitalia; excised diameter 1.1 to 2.0 cm Excision, malignant lesion including margins, 09/20/14 trunk, arms, or legs; excised diameter 2.1 to 3.0 cm Repair, intermediate, wounds of scalp, 09/20/14 axillae, trunk and/or extremities (excluding hands and feet); 2.6 cm to 7.5 cm.. Repair, intermediate, wounds of scalp, 09/20/14 axillae, trunk and/or extremities (excluding hands and feet); 2.6 cm to 7.5 cm.. Repair, intermediate, wounds of scalp, 09/20/14 axillae, trunk and/or extremities (excluding hands and feet); 2.6 cm to 7.5 cm.. Full thickness skin graft2 01/29/14 Excision of malignant lesion of skin of 06/02/13 extremities3 Completely excised 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
--- OUTSIDE RECORDS SUMMARY | 2016-05-30 10:46 | XMS REPORT | Referral Summary ---
Author Author [facility] Organization [facility] Address Unknown Phone Unavailable Care Team Providers Care Paper Plate Machine Tender Name Role Phone Brian Marrero Primary Care Physician [phone] Encounter VC Date(s): 08/15/15 - 08/15/15 [facility] [address] [place] [address] [place] [address] Discharge Diagnosis: Squamous cell carcinoma Discharge Diagnosis: Post-operative state Discharge Disposition: 01-Home or Self Care Attending Physician: Nhi Powers APRN Admitting Physician: Nhi Powers APRN Vital Signs Most recent to 1 oldest [Reference Range]: Temperature Tympanic 36.5 degC [36.6-38.1 degC] *LOW* (08/15/15 9:50 AM) Problem List Condition Effective Dates Status [...] 2Ear from Ear L collected 02/16/14 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 Allergies, Adverse Reactions, Alerts No Known Medication Allergies Medications Bactroban 2% topical ointment 1 acosta, Topical, TID, to ear lesion TID for 2 weeks, # 22 g, 0 Refill(s), Pharmacy: [facility] Start Date: 07/20/15 Status: Ordered carvedilol 3.125 mg oral tablet tabs, Oral, [...] 30 unknown unit, 1 Refill (s), eRx: [facility], Take 1 tablet by mouth every [...] BEDTIME, # 30 caps, 4 Refill(s), eRx: [facility], TAKE 1 CAPSULE AT BEDTIME Start Date: 06/17/15 Status: Ordered Vitamin B Complex 100 1 tabs, Oral, Daily, 0 Refill(s) Start Date: 09/07/14 Status: Ordered Results No data available for this section Immunizations No data available for this section Procedures Procedure Date Related Diagnosis Body Site Excision of squamous cell carcinoma1 08/12/15 Excision of basal cell carcinoma2 09/20/14 Full thickness skin graft3 01/29/14 Excision of malignant lesion of skin of 06/02/13 extremities4 Completely excised Squamous cell carcinoma in 2014 situ left upper arm RIGHT PLEURX CATHETER 12/26/09 Cystoscopy/Lazer Vaporization5 07/25/09 CABG - Coronary artery bypass graft Extraction of cataract LEFT PLEURX CATHETER PLACED BY DR. 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 CT scan of the head has been accomplished and the report is pending. Anticipatewritten report tomorrow, after Dr. Walters will review this results and will call patient tomorrow afternoon. Coumadin remains on Holdfor now,pending appointmentwith ENTand/or plasticsurgeon. Ordered: Postoperative Est [id number] 2.Post-operative state Ordered: Postoperative Est [id number]
--- OUTSIDE RECORDS SUMMARY | 2016-05-30 10:46 | XMS REPORT | CCD ---
Author Author HANSEL LANDAVERDE Organization Unknown Address [address] [place], [place] [id number] Phone 0 Care Team Providers Care Machine Loader Name Role Phone Harrison MURPHY Attending Physician [...] Date Status Cellulitis of right upper limb 400014945 03/27/2015 Active Methicillin resistant Staphylococcus aureus infection, unspecified site 961700923 03/31/2015 Active Elevated INR 273312425 03/31/2015 Active H/O: atrial fibrillation 711965500 2015 Active History of artificial heart valve 455350440 03/31/2009 Active Non Hodgkin lymphoma 702047422 Active Results Unknown or Not Available. Active Medications Medication Code Dose Units Frequency Route Modification Start Date/Time Lisinopril 2.5MG Oral Tablet 339093 1 TABLET DAILY BY MOUTH 04/05/2015 12:39 Prescription Detail TAKE 1 TABLET BY MOUTH DAILY Coumadin 2MG Oral Tablet 907902 1 TABLET DAILY BY MOUTH 04/05/2015 12:36 Prescription Detail TAKE 1 TABLET BY MOUTH DAILY Mapap 325MG Oral Tablet 543899 650 MILLIGRAMS PRN Q6H BY MOUTH 04/05/2015 12:36 Prescription Detail TAKE 650 MILLIGRAMS BY MOUTH PRN Q6H Protonix 40MG Oral Tablet, Enteric Coated 451806 40 MILLIGRAMS QD BY MOUTH 04/05/2015 12:36 Prescription Detail TAKE 40 MILLIGRAMS BY MOUTH QD Sulfamethoxazole/Trimethoprim 800MG-160MG Oral Tablet 311520 1 TABLET TWICE A DAY BY MOUTH 2015 12:36 Prescription Detail TAKE 1 TABLET BY MOUTH TWICE A DAY Carvedilol 6.25MG Oral Tablet 505813 6.25 MILLIGRAMS TWICE A DAY ORAL 04/02/2014 08:38 Prescription Detail 6.25 MILLIGRAMS ORAL TWICE A DAY Centrum Silver [id number] Oral Tablet 136329 1 EACH DAILY ORAL 04/02/2014 08:38 Prescription Detail 1 EACH ORAL DAILY Digoxin 0.25MG Oral Tablet 571621 0.25 MILLIGRAMS DAILY ORAL 04/02/2014 08:38 Prescription Detail 0.25 MILLIGRAMS ORAL DAILY Furosemide 40MG Oral Tablet 049405 40 MILLIGRAMS DAILY ORAL 04/02/2014 08:38 Prescription Detail 40 MILLIGRAMS ORAL DAILY Ocuvite 60MG-0.32ND-4301SG-0 Oral Tablet 889791 1 EACH DAILY ORAL 04/02/2014 08:38 Prescription Detail 1 EACH ORAL DAILY Potassium Chloride 20MEQ Oral Tablet, Extended Release 050875 20 MEQ DAILY ORAL 04/02/2014 08:38 Prescription Detail 20 MEQ ORAL DAILY Simvastatin 20MG Oral Tablet 091401 20 MILLIGRAMS AT BEDTIME ORAL 04/02/2014 08:38 Prescription Detail 20 MILLIGRAMS ORAL AT BEDTIME Tamsulosin Hydrochloride 0.4MG Oral Capsule 891666 0.4 MILLIGRAMS DAILY ORAL 04/02/2014 08:38 Prescription Detail 0.4 MILLIGRAMS ORAL DAILY Medications Administered During Visit Unknown or Not Available. Encounters Encounter Diagnosis Diagnosis Code Start Date Other specified local infections of the skin and subcutaneous tissue L0889 12/22/2015 Social History Smoking Status Code Start Date End Date Unknown if ever smoked [id number] Patient Decision Aids Unknown or Not Available. Discharge Instructions You were admitted to [facility] on 12/22/2015 08:31 with a principal diagnosis of Oth local infections of the skin and subcutaneous tissu You were discharged from [facility] on 12/22/2015 08:31 Should you have any questions prior to [...]
--- OUTSIDE RECORDS SUMMARY | 2016-05-30 10:46 | XMS REPORT | Referral Summary ---
Author Author [facility] Organization [facility] Address Unknown Phone Unavailable Care Team Providers Care Candle Making Supervisor Name Role Phone Elida Brian Primary Care Physician [phone] Encounter Date(s): 10/19/15 - 10/19/15 [facility] [address] [place], [place] [address] Discharge Diagnosis: Wound infection Discharge Diagnosis: Skin necrosis Discharge Disposition: 01-Home or Self Care Attending Physician: Augusto Moyer MD Admitting Physician: Augusto Moyer MD Vital Signs No data available for this section Problem List Condition Effective Dates Status Health Status Informant Aortic valve Active patient disease(Confirmed)1 Atrial fibrillation Active (disorder)(Confirmed ) Atrial Resolved fibrillation(Confirm ed) Benign essential Active hypertension (disorder)(Confirmed ) BPH (benign Resolved prostatic hypertrophy)(Confirm ed) CAD (coronary artery Resolved disease)(Confirmed) Pacemaker(Confirmed) Active patient 2 Cardiomyopathy(Confi Active patient rmed) Heart Active failure(Confirmed) Hyperlipidemia(Confi Resolved rmed) Hypertension(Confirm Resolved ed) Lymphedema of upper Active patient extremity(Confirmed) Lymphoma Resolved (clinical)(Confirmed ) Basal cell 01/29/14 Active cancer(Confirmed)3 Non-Hodgkins Active patient lymphoma(Confirmed) Methicillin Active resistant Staphylococcus aureus(Confirmed)4 Pleural Active patient effusion(Confirmed)5 Pure Active hypercholesterolemia (disorder)(Confirmed ) Sick sinus Active patient syndrome(Confirmed) 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 Allergies, Adverse Reactions, Alerts No [...] 0 Refill(s) Start Date: 10/07/13 Status: Ordered Imbruvica 140 mg oral capsule 420 mg 3 caps, Oral, Daily, 0 Refill(s) Start Date: 08/17/15 Status: Ordered Lasix 40 mg oral tablet mg tabs, Oral, BID, 0 Refill(s) Start Date: 10/07/13 Status: Ordered lisinopril 2.5 mg oral tablet See Instructions, Take 1 tablet by mouth every day., # 30 unknown unit, 1 Refill (s), eRx: [facility], Take 1 tablet by mouth every day. Start Date: 10/01/13 Status: Ordered Ocuvite 1 tabs, Oral, Daily, 0 Refill(s) Start Date: 09/07/14 Status: Ordered Percocet 5/325 oral tablet See Instructions, as needed for pain, 1-2 tabs Oral q6hr, # 40 tabs, 0 Refill(s) Start Date: 10/06/15 Status: Ordered potassium chloride 20 mEq oral tablet, extended release tabs, Oral, BID, 0 Refill(s) Start Date: 02/23/14 Status: Ordered ranitidine 150 mg oral tablet 1 tabs, Oral, BID, 0 Refill(s) Start Date: 10/07/13 Status: Ordered simvastatin 20 mg oral tablet tabs, Oral, Bedtime (once a day), 0 Refill(s) Start Date: 10/07/13 Status: Ordered tamsulosin 0.4 mg oral capsule See Instructions, TAKE 1 CAPSULE AT BEDTIME, # 30 caps, 4 Refill(s), eRx: [facility], TAKE 1 CAPSULE AT BEDTIME Start Date: 06/17/15 Status: Ordered Results No data available for this section Immunizations No data available for this section Procedures Procedure Date Related Diagnosis Body Site 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 Muscle, myocutaneous, or fasciocutaneous 10/06/15 flap; head and neck (eg, temporalis, masseter muscle, sternocleidomastoid, levator scapulae) Radical excision external auditory canal 10/06/15 lesion; without neck dissection.. Radical resection of tumor (eg, sarcoma), 10/06/15 soft tissue of face or scalp; 2 cm or greater Reconstruction of external auditory canal 10/06/15 (meatoplasty) (eg, for stenosis due to injury, infection) (separate procedure).. Removal impacted cerumen requiring 10/06/15 instrumentation, unilateral. 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 Contusions happen when an injury causes bleeding under the skin. Signs of bruising include pain, puffiness (swelling), and discolored skin. The contusion may turn blue, purple, or yellow. HOME CARE Put ice on the injured area. Put ice in a plastic bag. Place a towel between your skin and the bag. Leave the ice on for 15-20 minutes, 03-04 times a day. Only take medicine as told by your doctor. Rest the injured area. If possible, raise (elevate) the injured area to lessen puffiness. GET HELP RIGHT AWAY IF: You have more bruising or puffiness. You have pain that is getting worse. Your puffiness or pain is not helped by medicine. MAKE SURE YOU: Understand these instructions. Will watch your condition. Will get help right away if you are not doing well or get worse. This information is not intended to replace advice given to you by your health care provider. Make sure you discuss any questions you have with your health care provider. Document Released: 08/27/2008 Document Revised: 06/02/2012 Document Reviewed: ExitCare Patient Information 2016 [place], [facility]. No follow up information was provided.
--- OUTSIDE RECORDS SUMMARY | 2016-05-30 10:46 | XMS REPORT | Referral Summary ---
Author Author [facility] Organization [facility] Address Unknown Phone Unavailable Care Team Providers Care Environmental Studies Professor Name Role Phone Brian Marrero Primary Care Physician [phone] Encounter Date(s): 10/01/14 - 10/01/14 [facility] [address] [place] [address] [place] [id number] Discharge Diagnosis: Actinic keratosis Discharge Diagnosis: BCC (basal cell carcinoma of skin) Discharge Diagnosis: Visit for suture removal Discharge Disposition: 01-Home or Self Care Attending Physician: Nhi Poewrs APRN Admitting Physician: Nhi Powers APRN Vital Signs Most recent to 1 oldest [Reference Range]: Temperature Tympanic 36.4 degC [36.6-38.1 degC] *LOW* (10/01/14 9:12 AM) Problem List Condition Effective Dates Status [...] 2Ear from Ear L collected 02/16/14 11:36:00 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 [...] 30 unknown unit, 1 Refill (s), eRx: [facility], Take 1 tablet by mouth [...] BEDTIME, # 30 caps, 2 Refill(s), eRx: [facility], TAKE 1 CAPSULE AT BEDTIME [...] PLEURX CATHETER PLACED BY DR. 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 It begins in the basal cells, which are at the bottom of the outer skin layer (epidermis ). CAUSES Sun exposure is the most common [...] physical exam. Often , a tissue sample (biopsy ) is also taken. The tissue is examined under a microscope. TREATMENT The treatment for basal cell carcinoma depends on the type, size, location, and number of tumors. Possible treatments include: Mohs surgery. This is a procedure done by a skin doctor (quality process lead or Mohs surgeon ) in his or her office. The cancerous cells are removed layer by layer. This treatment has a high cure rate. Surgical removal of the tumor. Freezing the tumor with liquid nitrogen (cryosurgery ). Plastic surgery to remove the tumor, in [...] spreads to other areas of the body (metastasizes ). Basal cell carcinoma may come back at the same location (recur ), but it can be treated again if [...] Released: 09/15/2003 Document Revised: 09/09/2012 Document Reviewed: [facility] Patient Information 2014 [employer] [facility]. No follow up information was provided. Extracted from: Title: Office Visit Note Author: Nhi Powers CANCELING AND CUTTING CONTROL CLERK Date: 10/01/14 Assessment/Plan Actinic keratosis Pathology from the scalp indicates actinic keratosis with moderate to severe squamous dysplasia. Ordered: Postoperative Est 56089 BCC (basal cell carcinoma of skin) The right forearm pathology indicates multifocal superficial and invasive basal cell carcinoma final margins are free of tumor. Ordered: Postoperative Est 48943 Visit for suture removal Sutures are removed from the arm. We'll treat the dehiscence with Aquacel age and Allevyn foam and have our office nurse change that on 05 October and then you should change it every 5 days. Applies are sent with patient. I would like you to return to the clinic on October 05and ouroffice nurse will remove sutures from the scalp. She may opt to place Steri-Strips. I would like you to return to my office on October 27 at 9 a.m. for what is hopefully a final visit regarding the scalp and arm. Ordered: Postoperative Est 61015
--- OUTSIDE RECORDS SUMMARY | 2016-05-30 10:47 | XMS REPORT | Referral Summary ---
Author Author [facility] Organization [facility] Address Unknown Phone Unavailable Care Team Providers Care Dialysis Patient Care Technician Name Role Phone Brian Marrero Primary Care Physician [phone] Encounter VC Date(s): 10/19/14 - 10/19/14 [facility], [address] [place] [id number] Discharge Disposition: 01-Home or Self Care Attending Physician: Mic Sandoval MD Admitting Physician: Mic Sandoval MD Referring Physician: Meliton Martínez MD Vital Signs Most recent to 1 oldest [Reference Range]: Temperature Tympanic 35.9 degC [36.6-38.1 degC] *LOW* (10/19/14 9:01 AM) Problem List Condition Effective Dates Status [...] 2Ear from Ear L collected 02/16/14 11:36: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
--- OUTSIDE RECORDS SUMMARY | 2016-05-30 10:47 | XMS REPORT | Referral Summary ---
Author Author [facility] Organization [facility] Address Unknown Phone Unavailable Care Team Providers Care Client Services Coordinator Name Role Phone Brian Marrero Primary Care Physician [phone] Encounter VC Date(s): 10/27/14 - 10/27/14 [facility] [address] [place] [address] [place] [id number] Discharge Diagnosis: Basal cell cancer Discharge Diagnosis: Wound of skin Discharge Disposition: 01-Home or Self Care Attending Physician: Nhi Powers APRN Admitting Physician: Nhi Powers APRN Vital Signs Most recent to 1 oldest [Reference Range]: Temperature Tympanic 36.2 degC [36.6-38.1 degC] *LOW* (10/27/14 8:42 AM) Problem List Condition Effective Dates Status [...] 2Ear from Ear L collected 02/16/14 11:36:00 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 [...] 30 unknown unit, 1 Refill (s), eRx: [facility], Take 1 tablet by mouth [...] CAPSULE AT BEDTIME, # 30 caps, eRx: [facility], TAKE 1 CAPSULE AT BEDTIME [...] PLEURX CATHETER PLACED BY DR. 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 This information is not intended to replace advice given to you by your health care provider. Make sure you discuss any questions you have with your health care provider. No follow up information was provided. Extracted from: Title: Office Visit Note Author: PowersNhi blake Harrison ROUGH ROUNDER Date: 10/27/14 Assessment/Plan Basal cell cancer Ordered: Postoperative Est 64296 Wound of skin Ordered: Postoperative Est 83396 Scalp wound looks great no additional attention needs to be focus there. The right arm in is still quite fragile. Slow healing could be in part to your ongoing chemotherapy for the lymphoma. The area described as being excoriated a couple of weeks ago is looking much better now. We will continue with the Calmoseptine around the wound on the intact skin, and continue Aquacel AG and Xtrasorb kept in place with a small amount of Kerlix roll and Coban. Take the dressing off every other day and shower, that in the water run over this wound and cleansing it gently. Extra supplies sent with patient. Then apply new dressing of Aquacel AG and Xtrasorb. We'll see you back in 2 weeks or sooner if things start looking worse.
--- OUTSIDE RECORDS SUMMARY | 2016-05-30 10:47 | XMS REPORT | CCD ---
Author Author [facility] Organization Unknown Address [address], [place] [id number] Phone 0 Care Team Providers Care Director Of Pulmonary Unit Name Role Phone Harrison MURPHY Attending Physician [...] Date Status Cellulitis of right upper limb 970245012 03/27/2015 Active Methicillin resistant Staphylococcus aureus infection, unspecified site 297003360 03/31/2015 Active Elevated INR 666797124 03/31/2015 Active H/O: atrial fibrillation 047198013 2015 Active History of artificial heart valve 855876075 03/31/2009 Active Non Hodgkin lymphoma 996440072 Active Results Unknown or Not Available. Active Medications Unknown or Not Available. Medications Administered During Visit Unknown or Not Available. Encounters Encounter Diagnosis Diagnosis Code Start Date Other specified local infections of the skin and subcutaneous tissue L0889 12/08/2015 Social History Smoking Status Code Start Date End Date Unknown if ever smoked [id number] Patient Decision Aids Unknown or Not Available. Discharge Instructions You were admitted to [facility] on 12/08/2015 08:29 with a principal diagnosis of Oth local infections of the skin and subcutaneous tissu You were discharged from [facility] on 12/08/2015 08:29 Should you have any questions prior to [...]
--- OUTSIDE RECORDS SUMMARY | 2016-05-30 10:47 | XMS REPORT | Referral Summary ---
Author Author [facility] Organization [facility] Address Unknown Phone Unavailable Care Team Providers Care Business Development Associate Name Role Phone Brian Marrero Primary Care Physician [phone] Encounter VC Date(s): 10/28/14 - 10/28/14 [facility] [address] [place] [address] [place] [id number] Discharge Disposition: 01-Home or Self Care Attending Physician: Dc Mayfield JR, MD Admitting Physician: Dc Mayfield JR, MD Vital Signs No data available for [...] 2Ear from Ear L collected 02/16/14 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 [...] 30 unknown unit, 1 Refill (s), eRx: [facility], Take 1 tablet by mouth [...] CAPSULE AT BEDTIME, # 30 caps, eRx: [facility], TAKE 1 CAPSULE AT BEDTIME [...] PLEURX CATHETER PLACED BY DR. 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
--- OUTSIDE RECORDS SUMMARY | 2016-05-30 10:47 | XMS REPORT | CCD ---
Author Author HANSEL LANDAVERDE Organization Unknown Address [address], [place] [id number] Phone 0 Care Team Providers Care Contact Clerk Name Role Phone Harrison MURPHY Attending Physician [...] Date Status Cellulitis of right upper limb 407607320 03/27/2015 Active Methicillin resistant Staphylococcus aureus infection, unspecified site 012112811 03/31/2015 Active Elevated INR 453213936 03/31/2015 Active H/O: atrial fibrillation 095879805 2015 Active History of artificial heart valve 311789156 03/31/2009 Active Non Hodgkin lymphoma 577590945 Active Results Unknown or Not Available. Active Medications Medication Code Dose Units Frequency Route Modification Start Date/Time Lisinopril 2.5MG Oral Tablet 059292 1 TABLET DAILY BY MOUTH 04/05/2015 12:39 Prescription Detail TAKE 1 TABLET BY MOUTH DAILY Coumadin 2MG Oral Tablet 921215 1 TABLET DAILY BY MOUTH 04/05/2015 12:36 Prescription Detail TAKE 1 TABLET BY MOUTH DAILY Mapap 325MG Oral Tablet 412694 650 MILLIGRAMS PRN Q6H BY MOUTH 04/05/2015 12:36 Prescription Detail TAKE 650 MILLIGRAMS BY MOUTH PRN Q6H Protonix 40MG Oral Tablet, Enteric Coated 897797 40 MILLIGRAMS QD BY MOUTH 04/05/2015 12:36 Prescription Detail TAKE 40 MILLIGRAMS BY MOUTH QD Sulfamethoxazole/Trimethoprim 800MG-160MG Oral Tablet 361882 1 TABLET TWICE A DAY BY MOUTH 2015 12:36 Prescription Detail TAKE 1 TABLET BY MOUTH TWICE A DAY Carvedilol 6.25MG Oral Tablet 983564 6.25 MILLIGRAMS TWICE A DAY ORAL 04/02/2014 08:38 Prescription Detail 6.25 MILLIGRAMS ORAL TWICE A DAY Centrum Silver [id number] Oral Tablet 423215 1 EACH DAILY ORAL 04/02/2014 08:38 Prescription Detail 1 EACH ORAL DAILY Digoxin 0.25MG Oral Tablet 230368 0.25 MILLIGRAMS DAILY ORAL 04/02/2014 08:38 Prescription Detail 0.25 MILLIGRAMS ORAL DAILY Furosemide 40MG Oral Tablet 971518 40 MILLIGRAMS DAILY ORAL 04/02/2014 08:38 Prescription Detail 40 MILLIGRAMS ORAL DAILY Ocuvite 60MG-[id number]-0 Oral Tablet 709608 1 EACH DAILY ORAL 04/02/2014 08:38 Prescription Detail 1 EACH ORAL DAILY Potassium Chloride 20MEQ Oral Tablet, Extended Release 692281 20 MEQ DAILY ORAL 04/02/2014 08:38 Prescription Detail 20 MEQ ORAL DAILY Simvastatin 20MG Oral Tablet 430143 20 MILLIGRAMS AT BEDTIME ORAL 04/02/2014 08:38 Prescription Detail 20 MILLIGRAMS ORAL AT BEDTIME Tamsulosin Hydrochloride 0.4MG Oral Capsule 370848 0.4 MILLIGRAMS DAILY ORAL 04/02/2014 08:38 Prescription Detail 0.4 MILLIGRAMS ORAL DAILY Medications Administered During Visit Unknown or Not Available. Encounters Encounter Diagnosis Diagnosis Code Start Date Other specified local infections of the skin and subcutaneous tissue L0889 11/10/2015 Social History Smoking Status Code Start Date End Date Unknown if ever smoked [id number] Patient Decision Aids Unknown or Not Available. Discharge Instructions You were admitted to [facility] on 11/10/2015 09:50 with a principal diagnosis of Oth local infections of the skin and subcutaneous tissu You were discharged from [facility] on 11/10/2015 09:50 Should you have any questions prior to [...]
--- OUTSIDE RECORDS SUMMARY | 2016-05-30 10:47 | XMS REPORT | Referral Summary ---
Author Author [facility] Organization [facility] Address Unknown Phone Unavailable Care Team Providers Care Cashier Manager Name Role Phone Brian Marrero Primary Care Physician [phone] Encounter VC Date(s): 11/23/14 - 11/23/14 [facility] [address] [place] [address] [place] [id number] Discharge Diagnosis: History of basal cell carcinoma Discharge Diagnosis: Open wound of lower arm Discharge Disposition: 01-Home or Self Care Attending Physician: Meliton Martínez MD Admitting Physician: Meliton Martínez MD Referring Physician: Brian Marrero MD Vital Signs Most recent to 1 oldest [Reference Range]: Temperature Tympanic 37.1 degC [36.6-38.1 degC] (11/23/14 3:48 PM) Problem List Condition Effective Dates Status [...] 2Ear from Ear L collected 02/16/14 11:36:00 SUGAR SAMPLER 3Also of scalp 01-29-2014 4Left upper arm. [...] 30 unknown unit, 1 Refill (s), eRx: [facility], Take 1 tablet by mouth [...] CAPSULE AT BEDTIME, # 30 caps, eRx: [facility], TAKE 1 CAPSULE AT BEDTIME [...] situ left upper arm RIGHT PLEURX CATHETER 10/4/10 Cystoscopy/Lazer Vaporization4 07/25/09 CABG - Coronary artery bypass graft Extraction of cataract LEFT PLEURX CATHETER PLACED BY DR. BAILEY IN [place] Pacemaker 1Basal cell carcinoma right forearm at 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 This information is not intended to replace advice given to you by your health care provider. Make sure you discuss any questions you have with your health care provider. No follow up information was provided. Extracted from: Title: Office Visit Note Author: Nhi Powers FOOD CROPS FARM HAND Date: 11/23/14 Assessment/Plan 1.History of basal cell carcinoma Ordered: Postoperative Est 78131 2.Open wound of lower arm Ordered: Postoperative Est 74335 Wound was treated again today with silver nitrate. This seems to have stimulated new epithelial/skin growth. Continue with the Xeroformgauze followed by dry gauze. Continue to wash the area and the shower just as you have been doing. Iwouldlike to see you back in 10-14 daysor sooner if any concerns arise.
--- OUTSIDE RECORDS SUMMARY | 2016-05-30 10:47 | XMS REPORT | CCD ---
Author Author HANSEL LANDAVERDE Organization Unknown Address [address], [place] [id number] Phone 0 Care Team Providers Care Farm Equipment Engineer Name Role Phone JOE WALKER Attending Physician [phone] Vital Signs Unknown or Not Available. Allergies Allergy Code Allergy Type Reaction Status NKDA - NO KNOWN DRUG ALLERGIES 0 Drug allergy Active Procedures Unknown or Not Available. History of Immunizations Immunization Code Date pneumococcal polysaccharide PPV23 33 03/2005 Influenza, high dose seasonal 135 2014 Problems Problem Code Start Date Resolved Date Status Cellulitis of right upper limb 576367377 03/27/2015 Active Methicillin resistant Staphylococcus aureus infection, unspecified site 183657621 03/31/2015 Active Elevated INR 629901441 03/31/2015 Active H/O: atrial fibrillation 515225518 2015 Active History of artificial heart valve 879493050 03/31/2009 Active Non Hodgkin lymphoma 694921477 Active Results AEROBIC BACTERIAL CULTURE - Collect Date/Time: 11/03/2015 11:15 Test Name Code Test Result Test Units Test Ref Range SPEC SOURCE LT EAR INCIS N/A Aerobic Bacterial Culture 634-6 Final report N/A Active Medications Medication Code Dose Units Frequency Route Modification Start Date/Time Lisinopril 2.5MG Oral Tablet [id number] 1 TABLET DAILY BY MOUTH 04/05/2015 12:39 Prescription Detail TAKE 1 TABLET BY MOUTH DAILY Coumadin 2MG Oral Tablet 359164 1 TABLET DAILY BY MOUTH 04/05/2015 12:36 Prescription Detail TAKE 1 TABLET BY MOUTH DAILY Mapap 325MG Oral Tablet [id number] 650 MILLIGRAMS PRN Q6H BY MOUTH 04/05/2015 12:36 Prescription Detail TAKE 650 MILLIGRAMS BY MOUTH PRN Q6H Protonix 40MG Oral Tablet, Enteric Coated 861617 40 MILLIGRAMS QD BY MOUTH 04/05/2015 12:36 Prescription Detail TAKE 40 MILLIGRAMS BY MOUTH QD Sulfamethoxazole/Trimethoprim 800MG-160MG Oral Tablet 099082 1 TABLET TWICE A DAY BY MOUTH 2015 12:36 Prescription Detail TAKE 1 TABLET BY MOUTH TWICE A DAY Carvedilol 6.25MG Oral Tablet 289134 6.25 MILLIGRAMS TWICE A DAY ORAL 04/02/2014 08:38 Prescription Detail 6.25 MILLIGRAMS ORAL TWICE A DAY Centrum Silver [id number] Oral Tablet 739973 1 EACH DAILY ORAL 04/02/2014 08:38 Prescription Detail 1 EACH ORAL DAILY Digoxin 0.25MG Oral Tablet 394781 0.25 MILLIGRAMS DAILY ORAL 04/02/2014 08:38 Prescription Detail 0.25 MILLIGRAMS ORAL DAILY Furosemide 40MG Oral Tablet 602968 40 MILLIGRAMS DAILY ORAL 04/02/2014 08:38 Prescription Detail 40 MILLIGRAMS ORAL DAILY Ocuvite 60MG-[id number] Oral Tablet 371828 1 EACH DAILY ORAL 04/02/2014 08:38 Prescription Detail 1 EACH ORAL DAILY Potassium Chloride 20MEQ Oral Tablet, Extended Release 692452 20 MEQ DAILY ORAL 04/02/2014 08:38 Prescription Detail 20 MEQ ORAL DAILY Simvastatin 20MG Oral Tablet 019698 20 MILLIGRAMS AT BEDTIME ORAL 04/02/2014 08:38 Prescription Detail 20 MILLIGRAMS ORAL AT BEDTIME Tamsulosin Hydrochloride 0.4MG Oral Capsule 801775 0.4 MILLIGRAMS DAILY ORAL 04/02/2014 08:38 Prescription Detail 0.4 MILLIGRAMS ORAL DAILY Medications Administered During Visit Unknown or Not Available. Encounters Encounter Diagnosis Diagnosis Code Start Date Other complications of procedures, not elsewhere classified, initial encounter [id number] 11/03/2015 Social History Smoking Status Code Start Date End Date Unknown if ever smoked [id number] Patient Decision Aids Unknown or Not Available. Discharge Instructions You were admitted to [facility] on 11/03/2015 09:58 with a principal diagnosis of Oth complications of procedures, NEC, init You had the following tests done: AEROBIC BACTERIAL CULTURE You were discharged from [facility] on 11/03/2015 09:58 Should you have any questions prior to [...]
--- OUTSIDE RECORDS SUMMARY | 2016-05-30 10:47 | XMS REPORT | Referral Summary ---
Author Author [facility] Organization [facility] Address Unknown Phone Unavailable Care Team Providers Care Wheelman Name Role Phone Brian Marrero Primary Care Physician [phone] Encounter VC Date(s): 11/16/14 - 11/16/14 [facility] [address] [place] [address] [place] [id number] Discharge Diagnosis: Wound of skin Discharge Diagnosis: History of basal cell cancer Discharge Diagnosis: Post-operative state Discharge Disposition: -Home or Self Care Attending Physician: Nhi Powers APRN Admitting Physician: Nhi Pwoers APRN Referring Physician: Brian Marrero MD Vital Signs Most recent to 1 oldest [Reference Range]: Temperature Tympanic 36.3 degC [36.6-38.1 degC] *LOW* (11/16/14 11:07 AM) Problem List Condition Effective Dates Status [...] 2Ear from Ear L collected 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 This information is not intended to replace advice given to you by your health care provider. Make sure you discuss any questions you have with your health care provider. No follow up information was provided. Extracted from: Title: Office Visit Note Author: Nhi Powers APRN Date: 11/16/14 Assessment/Plan History of basal cell cancer Ordered: Postoperative Est 69984 Post-operative state Ordered: Postoperative Est 42435 Wound of skin Ordered: Postoperative Est 70712 I am disappointed in the slowness of the healing of this wound. I'm not sure what else we need to do. With a history of basal cell carcinoma in this area as well as your chemotherapy for the lymphoma, I'm not sure what else to do. I appreciate your willingness to return in about 1-1/[address] Walters.
--- OUTSIDE RECORDS SUMMARY | 2016-05-30 10:47 | XMS REPORT | Referral Summary ---
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 After surgery, the cut needs to be well cared for to keep it from getting infected. HOW TO CARE FOR YOUR CUT Take medicines only as told by your doctor. There are many different ways to close and cover a cut, including stitches, skin glue, and adhesive strips. Follow your doctor's instructions on: Care of the cut. Bandage (dressing) changes and removal. Cut closure removal. Do not take baths, swim, or use a hot tub until your doctor says it is okay. You may shower as told by your doctor. Return to your normal diet and activities as allowed by your doctor. Use medicine that helps lessen itching on your cut as told by your doctor. Do not pick or scratch at your cut. Drink enough fluids to keep your pee (urine) clear or pale yellow. GET HELP IF: You have redness, puffiness (swelling), or pain at the site of your cut. You have fluid, blood, or pus coming from your cut. Your muscles ache. You have chills or you feel sick. You have a bad smell coming from the cut or bandage. Your cut opens up after stitches, john, or adhesive strips have been removed. You keep feeling sick to your stomach (nauseous) or keep throwing up ( vomiting). You have a fever. You are dizzy. GET HELP RIGHT AWAY IF: You have a rash. You pass out (faint). You have trouble breathing. MAKE SURE YOU: Understand these instructions. Will watch your condition. Will get help right away if you are not doing well or get worse. This information is not intended to replace advice given to you by your health care provider. Make sure you discuss any questions you have with your health care provider. Document Released: 06/02/2012 Document Revised: 04/01/2015 Document Reviewed: ExitCare Patient Information 2016 [employer], [facility]. No follow up information was provided.
--- OUTSIDE RECORDS SUMMARY | 2016-05-30 10:48 | XMS REPORT | CCD ---
Author Author HANSEL LANDAVERDE Organization Unknown Address [address] [place] [phone] Phone 0 Care Team Providers Care Hand Kiss Setter Name Role Phone [email or web address] Attending Physician [phone] C., N Nurse Assisstant 0 H., A Nurse Assisstant 0 T., A Nurse Assisstant 0 N., ROSALINDA Nurse Assisstant 0 Vital Signs Vital Sign Value Unit Date/Time Recent/Initial? Weight Measured 167 lbs 04/03/2015 19:13 Initial VS Height 72 in 2015 19:13 Initial VS BMI (Body Mass Index) 22.65 kg/m^2 04/03/2015 19:13 Initial VS BSA (Body Surface Area) 1.96 m^2 04/03/2015 19:13 Initial VS BP Systolic 124 mmHg 04/03/2015 20:20 Initial VS BP Diastolic 80 mmHg 04/03/2015 20:20 Initial VS Respiratory Rate 20 bpm 04/03/2015 20:20 Initial VS Heart Rate 68 bpm 12/2015 20:20 Initial VS O2 % BldC Oximetry 98 % 04/03/2015 20:20 Initial VS Body Temperature 97.8 degrees 04/03/2015 20:20 Initial VS BP Systolic 132 mmHg 04/05/2015 08:05 Most Recent VS BP Diastolic 82 mmHg 04/05/2015 08:05 Most Recent VS Respiratory Rate 20 bpm 04/05/2015 08:05 Most Recent VS Heart Rate 76 bpm 02/2016 08:05 Most Recent VS O2 % BldC Oximetry 98 % 04/05/2015 08:05 Most Recent VS Body Temperature 97.8 degrees 04/05/2015 08:05 Most Recent VS Allergies Allergy Code Allergy Type Reaction Status NKDA - NO KNOWN DRUG ALLERGIES 0 Drug allergy Active Procedures Unknown or Not Available. History of Immunizations Immunization Code Date pneumococcal polysaccharide PPV23 33 03/2005 Influenza, high dose seasonal 135 2014 Problems Problem Code Start Date Resolved Date Status Cellulitis of right upper limb 532349587 03/27/2015 Active Methicillin resistant Staphylococcus aureus infection, unspecified site 283044474 03/31/2015 Active Elevated INR 820629147 03/31/2015 Active H/O: atrial fibrillation 829714310 2015 Active History of artificial heart valve 342843263 03/31/2009 Active Non Hodgkin lymphoma 478397542 Active Results PT/INR - Collect Date/Time: 04/05/2015 07:00 Test Name Code Test Result Test Units Test Ref Range PT 18.5 Secs L=9.2 H=10.8 INR 1.78 L=0.00 H=4.00 PT/INR - Collect Date/Time: 04/04/2015 09:15 Test Name Code Test Result Test Units Test Ref Range PT 18.8 Secs L=9.2 H=10.8 INR 1.81 L=0.00 H=4.00 Active Medications Medication Code Dose Units Frequency Route Modification Start Date/Time Lisinopril 2.5MG Oral Tablet 948107 1 TABLET DAILY BY MOUTH 04/05/2015 12:39 Prescription Detail TAKE 1 TABLET BY MOUTH DAILY Coumadin 2MG Oral Tablet 497819 1 TABLET DAILY BY MOUTH 04/05/2015 12:36 Prescription Detail TAKE 1 TABLET BY MOUTH DAILY Mapap 325MG Oral Tablet 049431 650 MILLIGRAMS PRN Q6H BY MOUTH 04/05/2015 12:36 Prescription Detail TAKE 650 MILLIGRAMS BY MOUTH PRN Q6H Protonix 40MG Oral Tablet, Enteric Coated 472418 40 MILLIGRAMS QD BY MOUTH 04/05/2015 12:36 Prescription Detail TAKE 40 MILLIGRAMS BY MOUTH QD Sulfamethoxazole/Trimethoprim 800MG-160MG Oral Tablet 536097 1 TABLET TWICE A DAY BY MOUTH 2015 12:36 Prescription Detail TAKE 1 TABLET BY MOUTH TWICE A DAY Carvedilol 6.25MG Oral Tablet 502425 6.25 MILLIGRAMS TWICE A DAY ORAL 04/02/2014 08:38 Prescription Detail 6.25 MILLIGRAMS ORAL TWICE A DAY Centrum Silver [id number] Oral Tablet 953237 1 EACH DAILY ORAL 04/02/2014 08:38 Prescription Detail 1 EACH ORAL DAILY Digoxin 0.25MG Oral Tablet 700528 0.25 MILLIGRAMS DAILY ORAL 04/02/2014 08:38 Prescription Detail 0.25 MILLIGRAMS ORAL DAILY Furosemide 40MG Oral Tablet 024482 40 MILLIGRAMS DAILY ORAL 04/02/2014 08:38 Prescription Detail 40 MILLIGRAMS ORAL DAILY Ocuvite 60MG-[id number] Oral Tablet 430898 1 EACH DAILY ORAL 04/02/2014 08:38 Prescription Detail 1 EACH ORAL DAILY Potassium Chloride 20MEQ Oral Tablet, Extended Release 825545 20 MEQ DAILY ORAL 04/02/2014 08:38 Prescription Detail 20 MEQ ORAL DAILY Simvastatin 20MG Oral Tablet 782389 20 MILLIGRAMS AT BEDTIME ORAL 04/02/2014 08:38 Prescription Detail 20 MILLIGRAMS ORAL AT BEDTIME Tamsulosin Hydrochloride 0.4MG Oral Capsule 857200 0.4 MILLIGRAMS DAILY ORAL 04/02/2014 08:38 Prescription Detail 0.4 MILLIGRAMS ORAL DAILY Medications Administered During Visit Medication Dose Units Frequency Route Date/Time of Last Dose FUROSEMIDE (LASIX)TAB:20 MG 40 MG BID PO 04/05/2015 07:52 CARVEDILOL (COREG) TAB : 3.125MG 6.25 MG Q12H PO 04/05/2015 07: 52 K (KLOR CON) TAB : 20 MEQ 20 MEQ DAILY ORAL 04/05/2015 07:52 OCUVITE TAB: 1 TAB DAILY ORAL 04/05/2015 07:52 TAMSULOSIN (FLOMAX) CAP : 0.4MG 0.4 MG DAILY ORAL 04/05/2015 07 :52 SIMVASTATIN (ZOCOR) TAB : 20MG 20 MG DAILY/HS ORAL 04/04/2015 20:03 LISINOPRIL (PRINIVIL) TAB : 5MG 2.5 MG QD PO 04/05/2015 07:52 PANTOPRAZOLE (PROTONIX) TAB : 40MG 40 MG QD PO 04/05/2015 07: 52 DIGOXIN (LANOXIN) TAB :0.125MG 0.125 MG QD PO 04/05/2015 07:52 SALINE FLUSH 10ML SYRINGE : IV 10 ML BID IV PUSH 04/03/2015 22: 28 ACETAMINOPHEN (TYLENOL) TAB : 325MG 650 MG PRN Q6H PO 2015 22:28 WARFARIN (COUMADIN) TAB : 2MG 1 MG QD PO 04/04/2015 17:16 VANCOMYCIN IVPB: 750MG/250ML 750 MG Q12H IV 04/03/2015 20:46 SALINE FLUSH 10ML SYRINGE : IV 10 ML PRN IV PUSH 04/03/2015 20: 50 SULFAMETHOXAZOLE (BACTRIM DS) TAB:800MG/ 1 TAB BID PO 2015 07:52 Encounters Encounter Diagnosis Diagnosis Code Start Date Cellulitis of right upper limb [id number] 12/2015 Social History Smoking Status Code Start Date End Date Unknown if ever smoked [id number] Patient Decision Aids Unknown or Not Available. Discharge Instructions You were admitted to [facility] on 04/03/2015 with a principal diagnosis of Cellulitis of right upper limb. You were discharged from [facility] on 04/05/2015. Should you have any questions prior to discharge, please contact a member of your healthcare team. If you have left the hospital and have any questions, please contact your primary care physician. Discharge To:Home. Mode of Transportation: Ambulatory. Accompanied By:Spouse/SO. Mental Status:Alert & oriented. Bowel/Bladder Status:No problem. Education Focus Prior to Discharge:Medications. Community Resources: Patient/Family:Aware of resources for health care needs. Activities:No limitations. DIET:REGULAR. Medication Instruction:Pt/Family Member:PRESCRIPTION SENT BY DR. MARTINS TO [facility] Pain Management:Understands plan of care. Wounds/Treatments :WASH WOUND WITH SOAP AND WATER AND APPLY DRESSING DAILY Treatment Instructions:Change dressing every DAY General Instructions/Notify Physician:Elevated temperature, __ degrees, Increased swelling.Foul drainage from wound. Service Upon Discharge: None. Equipment Upon Discharge:Hearing aids. Returned/Dispensed to Patient:Clothing:, Valuables:. Follow up Appointment:FOLLOW UP WITH DR. MARTINS ON 04/07/15 AT 3:00 PM AT OFFICE Continuing Needs Are Met By:Patient, Spouse. Temperature:Afebrile. Pain Status:Denies pain at this time. Skin Integrity:DRESSING INTACT Pulmonary Status:Lungs clear bilaterally. Elimination:Voiding without difficulty. Immunizations: IMMUNIZATIONS UP TO DATE Chief Complaint and Reason For Visit Unknown or Not Available. Function Status Unknown or Not Available. Plan of Care Unknown or Not Available. Referral/Transition of Care Unknown or Not Available.
--- OUTSIDE RECORDS SUMMARY | 2016-05-30 10:49 | XMS REPORT | Continuity of Care Document ---
Author Author [facility] Organization [facility] Address Unknown Phone Unavailable Allergies Active Description Code Type Severity Reaction Onset Reported/Identified Relationship to Patient Clinical Status Yes No Known Medication Allergies NKMA N/A N/A 01/12/2014 Medications Problems Procedures Results Encounters ACCT No. Visit Date/Time Discharge Status Pt. Type Provider Facility Loc./Unit Complaint [id number] 06/16/2013 13:33:00 06/16/2013 23 :59:59 C[facility] Outpatient [id number] 06/02/2013 08:32:00 06/02/2013 23 :59:59 CLS Outpatient
--- OUTSIDE RECORDS SUMMARY | 2016-05-30 10:49 | XMS REPORT | Continuity of Care Document ---
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 - *Chronic Hypercholesterolemia - *Chronic Non-Hodgkins lymphoma - *Chronic Squamous cell carcinoma in situ of skin of upper a - *Resolved Unspecified disorder of skin and subcutaneous tissue - Uncertain Hypertension, Benign - *Chronic Atrial Fibrillation - *Chronic Atrial Fibrillation - Chronic OTH LYMP UNSP XTRNDL ORG - PURE HYPERCHOLESTEROLEM - BENIGN HYPERTENSION - ATRIAL FIBRILLATION - ESOPHAGEAL REFLUX - 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 - Hypertension, Benign - *Chronic Atrial Fibrillation - *Chronic Hypercholesterolemia - *Chronic Other malignant lymphomas, unspecified site - *Chronic Hypertension, Benign - Chronic Atrial Fibrillation - Chronic Hypercholesterolemia - Chronic Other malignant lymphomas, unspecified site - Chronic Atrial Fibrillation - *Chronic Family History Family Member Diagnosis Age At Onset Status Father (Unknown) train accident age 40's Yes Mother (Unknown) CAD Yes Social History Social History Element Description Quantity Unknown Allergies, Adverse Reactions, Alerts Substance Reaction Severity Status Unknown Medications Medication Instructions Dosage Effective Dates (start - stop) Status lisinopril 2.5 mg tablet Take 1 tablet by mouth every day. - Active eplerenone 25 mg tablet take 1 tablet (25MG) by oral route every day 25 MG - Active simvastatin 20 mg tablet take 1 tablet (20MG) by oral route every day in the evening 20 MG - Active carvedilol 3.125 mg tablet take 1 tablet (3.125MG) by oral route 2 times every day with food 3.125 MG - Active ranitidine 150 mg tablet take 1 tablet (150MG) by oral route 2 times every day 150 MG - Active iron 325 mg (65 mg iron) tablet take 1 Tablet by Oral route 2 times every day 0 - Active Lasix 40 mg tablet Take 1 tablet by mouth twice a day. - Active potassium chloride ER 20 mEq tablet,extended release(part/cryst) Take 1 tablet by mouth twice a day. - Active PT/INR to be drawn PRN and faxed to Dr Manuel Cunningham @ [phone] DX: 427.31 - Active Coumadin 2 mg tablet TAKE 2 TABS BY MOUTH EVERY DAY OR DIRECTED 2012 - Active digoxin 250 mcg tablet Take 1 tablet by mouth every day. - Active tamsulosin ER 0.4 mg capsule,extended release 24 hr Take 1 capsule by mouth at bedtime. - Active Immunizations Vaccine Date Status Comments Unknown Results Test Name Date and Time Measure Units Reference Range Abnormal Flag Comments Unknown Vital Signs Date / Time: Height Weight Pulse Rate Blood Pressure Temperature /12:51:00 72.00 in 169.00 lbs 80 /min 93/60 mm[Hg] 97.3 F Procedures Procedure Date Unknown Encounters Encounter Location Date Patient Visit [facility] Patient [facility] Patient [facility] Patient [facility] Patient [facility] Patient Visit [facility] Patient Visit [facility] Patient Visit [facility] Directives Directive Effective Date Unknown
--- OUTSIDE RECORDS SUMMARY | 2016-05-30 10:49 | XMS REPORT | Referral Summary ---
Author Author [facility] Organization [facility] Address Unknown Phone Unavailable Care Team Providers Care Spring Intern Name Role Phone Brian Marrero Primary Care Physician [phone] Encounter VC Date(s): 07/20/15 - 07/20/15 [facility] [address] [place] [address] [place] [id number] Discharge Diagnosis: Cellulitis of left ear Discharge Disposition: 01-Home or Self Care Attending Physician: Meliton Martínez MD Admitting Physician: Meliton Martínez MD Referring Physician: Brian Marrero MD Vital Signs Most recent to 1 oldest [Reference Range]: Temperature Tympanic 36.5 degC [36.6-38.1 degC] *LOW* (07/20/15 2:42 PM) Blood Pressure 102/60 mmHg [90-140/60-90 mmHg] (07/20/15 2:42 PM) Problem List Condition Effective Dates Status [...] 2Ear from Ear L collected 02/16/14 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 Allergies, Adverse Reactions, Alerts No Known Medication Allergies Medications Bactrim DS 800 mg-160 mg oral tablet 1 tabs, Oral, BID, X 14 days, # 28 tabs, 0 Refill(s), Pharmacy: [facility] Start Date: 07/20/15 Stop Date: 08/03/15 Status: Ordered Bactroban 2% topical ointment 1 acosta, Topical, TID, to ear lesion TID for 2 weeks, # 22 g, 0 Refill(s), Pharmacy: [facility] Start Date: 07/20/15 Status: Ordered carvedilol [...] 30 unknown unit, 1 Refill (s), eRx: [facility], Take 1 tablet by [...] BEDTIME, # 30 caps, 4 Refill(s), [facility]Rx: [facility], TAKE 1 CAPSULE AT BEDTIME [...] PLEURX CATHETER PLACED BY DR. 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
--- OUTSIDE RECORDS SUMMARY | 2016-05-30 10:49 | XMS REPORT | Referral Summary ---
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 [...] 30 unknown unit, 1 Refill (s), eRx: [facility], Take 1 tablet by mouth every [...] BEDTIME, # 30 caps, 4 Refill(s), eRx: [facility], TAKE 1 CAPSULE AT BEDTIME Start [...] PLEURX CATHETER PLACED BY DR. 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
--- OUTSIDE RECORDS SUMMARY | 2016-05-30 10:49 | XMS REPORT | Referral Summary ---
Author Author [facility] Organization [facility] Address Unknown Phone Unavailable Care Team Providers Care Spring Internship Name Role Phone Brian Marrero Primary Care Physician [phone] Encounter Date(s): 11/09/14 - 11/09/14 [facility] [address] [place] [address] [place] [id number] Discharge Diagnosis: Post-operative state Discharge Diagnosis: Wound of skin Discharge Diagnosis: Basal cell cancer Discharge Disposition: 01-Home or Self Care Attending Physician: Nhi Powers APRN Admitting Physician: Nhi Powers APRN Vital Signs Most recent to 1 oldest [Reference Range]: Temperature Tympanic 36.3 degC [36.6-38.1 degC] *LOW* (11/09/14 9:04 AM) Problem List Condition Effective Dates Status [...] 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 This information is not intended to replace advice given to you by your health care provider. Make sure you discuss any questions you have with your health care provider. No follow up information was provided. Extracted from: Title: Office Visit Note Author: Priya Nhi L SCRUB NURSE Date: 11/09/14 Assessment/Plan Basal cell cancer Ordered: Postoperative Est 20046 Post-operative state Ordered: Postoperative Est 24499 Wound of skin Ordered: Postoperative Est 45214 Wound is then dressed with Xtrasorb and held in place by paper tape. Keep this dry between showers. about twice a week take it off , shower as normal and replaced with the new dressing. Perhaps the paper tape will stay in place better than the Kerlix roll. We'll continue with the Xtrasorb dressing and change it every 3-5 days or sooner if it comes dislodged are wet. Return to the clinic in one week, we'll see at that point whether we want to continue with this dressing routine or changed to something else.
--- OUTSIDE RECORDS SUMMARY | 2016-05-30 10:49 | XMS REPORT | Referral Summary ---
Author Author [facility] Organization [facility] Address Unknown Phone Unavailable Care Team Providers Care Concrete Engineering Technician Name Role Phone Brian Marrero Primary Care Physician [phone] Encounter [facility] Date(s): 07/27/15 - 07/27/15 [facility] [address] [place] [address] [place] [id number] Discharge Diagnosis: History of squamous cell carcinoma of skin Discharge Diagnosis: Cellulitis of left external ear Discharge Disposition: 01-Home or Self Care Attending Physician: Meliton Martínez MD Admitting Physician: Meliton Martínez MD Vital Signs Most recent to 1 oldest [Reference Range]: Temperature Tympanic 36.1 degC [36.6-38.1 degC] *LOW* (07/27/15 10:01 AM) Problem List Condition Effective Dates Status [...] 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 Allergies, Adverse Reactions, Alerts No Known Medication Allergies Medications Bactrim DS 800 mg-160 mg oral tablet 1 tabs, Oral, BID, X 14 days, # 28 tabs, 0 Refill(s), Pharmacy: [facility] Start Date: 07/20/15 Stop Date: 08/03/15 Status: Ordered Bactroban 2% topical ointment 1 acosta, Topical, TID, to ear lesion TID for 2 weeks, # 22 g, 0 Refill(s), Pharmacy: [facility] Start Date: 07/20/15 Status: Ordered carvedilol [...] 30 unknown unit, 1 Refill (s), eRx: [facility], Take 1 tablet by [...] BEDTIME, # 30 caps, 4 Refill(s), eRx: [facility], TAKE 1 CAPSULE AT [...] PLEURX CATHETER PLACED BY DR. BAILEY IN [place] Pacemaker 1Basal cell carcinoma right forearm at [...] Patient Education Author: Meliton Martínez MD Date: 07/26 Family Medicine Squamous Cell Carcinoma Squamous cell carcinoma is the second most common form of skin cancer. It begins in the squamous cells in the outer layer of the skin (epidermis). CAUSES Ultraviolet light exposure is the most common cause of squamous cell carcinoma. This may come from sunlight or tanning beds. Squamous cell carcinoma is most common in sun-exposed areas like the face, neck, arms, and hands. However, squamous cell carcinoma can occur anywhere on the body, including the lips, inside the mouth, the legs, sites of long-term (chronic) scarring, and the anus. Other causes of squamous cell carcinoma can include: Exposure to arsenic. Exposure to radiation. Exposure to toxic tars and oils. RISK FACTORS Factors that increase your risk for squamous cell carcinoma include: Having fair skin. Being middle-aged or elderly. Heavy sun exposure, especially during childhood. Repeated sunburns. Use of tanning beds. A weakened immune system. This includes patients who have received a transplant and patients with human immunodeficiency virus (HIV) or acquired immunodeficiency syndrome (AIDS). Human papillomavirus infection. Conditions that cause chronic scarring. This can include burn scars, chronic ulcers, heat (thermal) injuries, and radiation. Exposure to psoralen plus ultraviolet A light therapy. Exposure to chemical carcinogens, such as tar, soot, and arsenic. Chronic inflammatory conditions such as lupus, lichen planus, or lichen sclerosus. Chronic infections, such as infections of the bone (osteomyelitis). Smoking. SYMPTOMS Squamous cell carcinoma often starts as small, skin-colored (pink or brown), sandpaper-like growths. These growths are called solar keratoses or actinic keratoses. These growths are often more easily felt than seen. DIAGNOSIS Your caregiver may be able to tell what is wrong by doing a physical exam. Often , a tissue sample is also taken. The tissue sample is examined under a microscope. TREATMENT The treatment for squamous cell carcinoma depends on the size and location of the tumors, as well as your overall health. Possible treatments include: Mohs surgery. This is a procedure done by a skin doctor (slurry mixer or Mohs surgeon) in his or her office. The cancerous cells are removed layer by layer. Laser surgery to remove the tumor. Freezing the tumor with liquid nitrogen (cryosurgery). Radiation. This may be used for tumors on the face. Electrodesiccation and curettage. This involves alternately scraping and burning the tumor, using an electric current to control bleeding. If treated soon enough, squamous cell carcinoma rarely spreads to other areas of the body (metastasizes). If left untreated, however, squamous cell carcinoma will destroy the nearby tissues. This can result in the loss of a nose or ear. PREVENTION Avoid the sun between 10:00 a.m. and 4:00 p.m. when it is the strongest. Use a sunscreen or sunblock with sun protection factor 30 or greater. Apply sunscreen at least 30 minutes before exposure to the sun. Reapply sunscreen every 2 to 4 hours while you are outside, after swimming, and after excessive sweating. Always wear protective hats, clothing, and sunglasses with ultraviolet protection. Avoid tanning beds. HOME CARE INSTRUCTIONS Avoid unprotected sun exposure. Do not smoke. Follow your caregiver's instructions for self-exams. Look for new growths or changes in your skin. Keep all follow-up appointments as directed by your caregiver. SEEK MEDICAL CARE IF: You notice any new growths or changes in your skin. You have had a squamous cell carcinoma tumor removed and you notice a new growth in the same location. This information is not intended to replace advice given to you by your health care provider. Make sure you discuss any questions you have with your health care provider. Document Released: 09/15/2003 Document Revised: 12/28/2014 Document Reviewed: ExitCare Patient Information 2015 [employer], [facility]. No follow up information was provided.
--- OUTSIDE RECORDS SUMMARY | 2016-05-30 10:49 | XMS REPORT | Referral Summary ---
Author Organization Unknown Address Unknown Phone Unavailable Care Team Providers Care Vendor Management Associate Name Role Phone Brian Marrero Primary Care Physician [phone] Encounter [facility] Date(s): 04/13/14 - 04/13/14 [facility], [address] [place] [address] Discharge Diagnosis: Actinic keratitis Discharge Disposition: Home or Self Care Attending Physician: Meliton Martínez MD Admitting Physician: Meliton Martínez MD Referring Physician: Brian Marrero MD Vital Signs Most recent to 1 oldest [Reference Range]: Temperature Tympanic 36.1 degC [36.6-38.1 degC] *LOW* (04/13/14 3:05 PM) Problem List Condition Effective Dates Status [...] 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 Allergies, Adverse Reactions, Alerts No Known Medication Allergies Medications carvedilol 3.125 mg oral tablet tabs, Oral, BID, 0 Refill(s) Start Date: 10/07/13 Status: Ordered Coumadin 2 mg oral tablet tabs, Oral, Daily, 0 Refill(s) Start Date: 10/07/13 Status: Ordered digoxin 250 mcg (0.25 mg) oral tablet tabs, Oral, Daily, 0 Refill(s) Start Date: 10/07/13 Status: Ordered Lasix 40 mg oral tablet tabs, Oral, Daily, 0 Refill(s) Start Date: 10/07/13 Status: Ordered lisinopril 2.5 mg oral tablet See Instructions, Take 1 tablet by mouth every day., # 30 unknown unit, 1 Refill (s), eRx: [facility], Take 1 tablet by mouth every day. Special Instructions: Take 1 tablet by mouth every day. Start Date: 10/01/13 Status: Ordered potassium chloride 20 mEq oral tablet, extended release tabs, Oral, BID, 0 Refill(s) Start Date: 02/23/14 Status: Ordered ranitidine 150 mg oral tablet 1 tabs, Oral, BID, 0 Refill(s) Start Date: 10/07/13 Status: Ordered simvastatin 20 mg oral tablet tabs, Oral, Bedtime (once a day), 0 Refill(s) Start Date: 10/07/13 Status: Ordered tamsulosin 0.4 mg oral capsule caps, Oral, Daily, 0 Refill(s) Start Date: 10/07/13 Status: Ordered Results No data available for this section Immunizations No data available for this section Procedures Procedure Date Related Diagnosis Body Site Full thickness skin graft1 01/29/14 Excision of malignant lesion of skin of 06/02/13 extremities2 Completely excised Squamous cell carcinoma in 2014 situ left upper arm RIGHT PLEURX CATHETER 12/26/09 Cystoscopy/Lazer Vaporization3 07/25/09 CABG - Coronary artery bypass graft Extraction of cataract LEFT PLEURX CATHETER PLACED BY DR. 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 Each lesion was treated in a standard freeze to thaw technique. A total of 11 lesions were treated. Patient was given routine cryotherapy instructions and informed to followup with me if the areas of concern did not completely resolve over the next 6 weeks. Patient was also instructed to return to the office in about a 6 month interval for repeat dermatologic evaluation.
--- OUTSIDE RECORDS SUMMARY | 2016-05-30 10:49 | XMS REPORT | Referral Summary ---
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 Abrasions do not go through all layers of the skin. HOME CARE If a bandage (dressing) was put on your wound, change it as told by your doctor. If the bandage sticks, soak it off with warm. Wash the area with water and soap 2 times a day. Rinse off the soap. Pat the area dry with a clean towel. Put on medicated cream (ointment) as told by your doctor. Change your bandage right away if it gets wet or dirty. Only take medicine as told by your doctor. See your doctor within 2448 hours to get your wound checked. Check your wound for redness, puffiness (swelling), or yellowish-white fluid (pus). GET HELP RIGHT AWAY IF: You have more pain in the wound. You have redness, swelling, or tenderness around the wound. You have pus coming from the wound. You have a fever or lasting symptoms for more than 23 days. You have a fever and your symptoms suddenly get worse. You have a bad smell coming from the wound or bandage. MAKE SURE YOU: Understand these instructions. Will watch your condition. Will get help right away if you are not doing well or get worse. This information is not intended to replace advice given to you by your health care provider. Make sure you discuss any questions you have with your health care provider. Document Released: 08/27/2008 Document Revised: 12/03/2012 Document Reviewed: ExitCare Patient Information 2016 [employer], [employer]. No follow up information was provided.
--- OUTSIDE RECORDS SUMMARY | 2016-05-30 10:50 | XMS REPORT | Referral Summary ---
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 It does not appear serious at this time. Headaches and vomiting are common following head injury. It should be easy to awaken from sleeping. Sometimes it is necessary for you to stay in the emergency department for a while for observation. Sometimes admission to the hospital may be needed. After injuries such as yours, most problems occur within the first 24 hours, but side effects may occur up to 710 days after the injury. It is important for you to carefully monitor your condition and contact your health care provider or seek immediate medical care if there is a change in your condition. WHAT ARE THE TYPES OF HEAD INJURIES? Head injuries can be as minor as a bump. Some head injuries can be more severe. More severe head injuries include: A jarring injury to the brain (concussion). A bruise of the brain (contusion). This mean there is bleeding in the brain that can cause swelling. A cracked skull (skull fracture). Bleeding in the brain that collects, clots, and forms a bump (hematoma). WHAT CAUSES A HEAD INJURY? A serious head injury is most likely to happen to someone who is in a car wreck and is not wearing a seat belt. Other causes of major head injuries include bicycle or motorcycle accidents, sports injuries, and falls. HOW ARE HEAD INJURIES DIAGNOSED? A complete history of the event leading to the injury and your current symptoms will be helpful in diagnosing head injuries. Many times, pictures of the brain, such as CT or MRI are needed to see the extent of the injury. Often, an overnight hospital stay is necessary for observation. WHEN SHOULD I SEEK IMMEDIATE MEDICAL CARE? You should get help right away if: You have confusion or drowsiness. You feel sick to your stomach (nauseous) or have continued, forceful vomiting. You have dizziness or unsteadiness that is getting worse. You have severe, continued headaches not relieved by medicine. Only take aiso-fgr-anamjzx or prescription medicines for pain, fever, or discomfort as directed by your health care provider. You do not have normal function of the arms or legs or are unable to walk. You notice changes in the black spots in the center of the colored part of your eye (pupil). You have a clear or bloody fluid coming from your nose or ears. You have a loss of vision. During the next 24 hours after the injury, you must stay with someone who can watch you for the warning signs. This person should contact local emergency services (911 in the [place] if you have seizures, you become unconscious, or you are unable to wake up. HOW CAN I PREVENT A HEAD INJURY IN THE FUTURE? The most important factor for preventing major head injuries is avoiding motor vehicle accidents. To minimize the potential for damage to your head, it is crucial to wear seat belts while riding in motor vehicles. Wearing helmets while bike riding and playing collision sports (like football) is also helpful. Also, avoiding dangerous activities around the house will further help reduce your risk of head injury. WHEN CAN I RETURN TO NORMAL ACTIVITIES AND ATHLETICS? You should be reevaluated by your health care provider before returning to these activities. If you have any of the following symptoms, you should not return to activities or contact sports until 1 week after the symptoms have stopped: Persistent headache. Dizziness or vertigo. Poor attention and concentration. Confusion. Memory problems. Nausea or vomiting. Fatigue or tire easily. Irritability. Intolerant of bright lights or loud noises. Anxiety or depression. Disturbed sleep. MAKE SURE YOU: Understand these instructions. Will watch your condition. Will get help right away if you are not doing well or get worse. This information is not intended to replace advice given to you by your health care provider. Make sure you discuss any questions you have with your health care provider. Document Released: 03/11/2006 Document Revised: 04/01/2015 Document Reviewed: ExitCare Patient Information 2016 [employer], [facility]. No follow up information was provided.
--- OUTSIDE RECORDS SUMMARY | 2016-05-30 10:50 | XMS REPORT | Referral Summary ---
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, Take 1 tablet by mouth [...] BEDTIME, # 30 caps, 4 Refill(s), eRx: [facility], TAKE 1 CAPSULE AT BEDTIME Start Date: 06/17/15 Status: Ordered Results Chemistry Most recent to 1 oldest [Reference Range]: Potassium Venous 3.9 mmol/L 1 [3.5-5.1 mmol/L] (10/06/15 11:22 AM) 1Result Comment: This test was performed on a whole blood specimen. The presence or absence of hemolysis cannot be assessed. Hemolysis can falsely elevate potassium levels. Normals are for venous specimens only. Immunizations No data available for this section [...] PLEURX CATHETER PLACED BY DR. 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 for _ weeks. Diet __ Liquids (Jell-O, soups, etc., if you are nauseated) _X_ Begin with liquids and light foods then progress to regular diet. __ Regular diet __ No alcoholic beverages for 24 hours or while taking pain medication. Personal hygiene _X_ Bath __ Shower after __ hours__ Sponge Bath__ Sitz Baths At Home care __ Remove dressing in ___hours__ Change dressing as necessary. __ Keep dressing clean and dry._X_ Do not change dressing until you see your doctor. __ Elevate affected area above level of your heart.__ Apply ice to area for __ _ hours __ Avoid blowing nose._X_ Keep water out of ears If any problems occur or if you have any further questions, please contact your physician. In an emergency, call [phone] ([phone]), if you cannot reach your physician. If you find that you cannot contact your physician, but feel that your signs and symptoms warrant a physicians attention, go to an Emergency room which is the closest to you. Activities:Call your surgeon promptly if you have: __ Take Tylenol/Advil as needed for discomfort_X_ If fever over _102.5 F__ _X_ Prescription given for discomfort. Use as directed.__ Pain not relieved by pain meds. __ Resume routine medications. Other: __ Inability to urinate by: Next dose of pain medicine may be given at ___ Persistent nausea and vomiting. (Take with food to prevent stomach upset.)__ Ear drainage more than _5 Days __ Stool softener__ Cough develops or difficulty breathing. Do NOT drive or operate hazardous machinery for 24 hours or while taking pain medication. Do not sign any important documents or make important decisions for 24 hours following surgery. When taking pain medicine, be careful as you walk or climb stairs as dizziness is not unusual. Check temperature every four hours during the day for two days. Return to see Dr. Moyer on 10/14/2015. Keep the dressing on the ear/head until the appointment . Keep the dressing dry, do not get it wet. Ear Surgery Care After After surgery, you may not hear better for several weeks. You may have to wait until the puffiness (swelling ) goes down or the packing is taken out of your ear. HOME CARE Do not move your head quickly or suddenly. A small amount of blood may drain from your ear for the first 24 hours. This is normal. You may feel sick to your stomach (nauseous ) and be dizzy for the first 24 hours after your surgery. Keep your ear dry. Do not let water get in your ear or on the bandage over your ear. Do not let water get in your ear if you wash your hair. Leave your bandage on. Do not change it unless your doctor tells you that it is okay. Only take medicine as told by your doctor. For the first week: Do not blow your nose for the first 3 or 4 days. Try not to cough or sneeze. If you do, open your mouth. This keeps the pressure the same on both sides of your ear drum. Do not apple picker anything that weighs more than 10 pounds (about the weight of a gallon of milk). Sleep with your head propped up on 2 pillows. GET HELP RIGHT AWAY IF: You have a temperature by mouth above 102 F (38.9 C), not controlled by medicine. You have a fever or feel sick to your stomach lasting more than 24 hours. Your ear hurts much worse. MAKE SURE YOU: Understand these instructions. Will watch your condition. Will get help right away if you are not doing well or get worse. Document Released: 02/21/2009 Document Revised: 06/02/2012 Document Reviewed: [facility] Patient Information 2013 Client Outlook. Follow Up With: Where: When: Augusto Madsen[facility]; [place] [address] Business (1) 10/12/2015 04:30:00 Comments: Follow Up With: Where: When: Brian Marrero [address] [place] [address] Business (1) Within 3 to 5 days Comments:
--- OUTSIDE RECORDS SUMMARY | 2016-05-30 10:50 | XMS REPORT | Referral Summary ---
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 BAILEY IN [place] Pacemaker 1Partial excision squamous cell carcinoma left [...] smoker Assessment and Plan Extracted from: Title: Dressing change Author: Mamie Fish RN Date: 10/27/15 Patient presents with dressing to Left side of face/head/ear. Absorbent dressing to lower left jaw with bloody/purulent/mucinous drainage present. Large dressing of Kerlix removed from left side of face and ear. Area is covered in drainage the same as listed before. Wound cleansed with Sterile Water. Purulence seems to be coming from inside the ear. Shell of ear is bleeding in several spots. Area on face/jaw is macerated and seems to be oozing blood. Calmoseptin applied to this area. Area behind ear has skull showing in a 1.5x2cm diameter. There is purulent drainage in this area also. Called Kami with Dr. Moyer to see if the skull had previously been visable and ask how to treat the wound. Kami spoke with Dr. Moyer and the skull had been visable when the patient was seen on 10/25/15. Xeroform dressing was applied to the ear and the area behind the hear. This was covered with folded 4x4's and an xtrasorb dressing. This is held in place with 3in. gauze roll. Patient and are to f/u with Dr. Moyer on Saturday and Saturday of next week for dressing changes at 1pm. Xeroform drsgs provided along with more gauze and gauze roll.
--- OUTSIDE RECORDS SUMMARY | 2016-05-30 10:50 | XMS REPORT | CCD ---
Author FRANK Garza Organization Unknown Address [address] [place] [phone] Phone 0 Care Team Providers Care Crm Solution Architect Name Role Phone MONOMatthew YUNG Attending Physician [phone] JULIUS Lackey Nurse Assisstant 0 C., N Nurse Assisstant 0 W., E Nurse Assisstant 0 G., W Nurse Assisstant 0 Vital Signs Vital Sign Value Unit Date/Time Recent/Initial? BP Systolic 126 mmHg 03/12/2014 14:54 Initial VS BP Diastolic 76 mmHg 03/12/2014 14:54 Initial VS Respiratory Rate 24 bpm 03/12/2014 14:54 Initial VS Heart Rate 88 bpm 14:54 Initial VS O2 % BldC Oximetry 99 % 03/12/2014 14:54 Initial VS Body Temperature 98 degrees 03/12/2014 14:54 Initial VS Weight Measured 165 lbs 03/12/2014 16:05 Initial VS Height 72 in 2013 16:05 Initial VS BMI (Body Mass Index) 22.38 kg/m^2 03/12/2014 16:05 Initial VS BSA (Body Surface Area) 1.95 m^2 03/12/2014 16:05 Initial VS BP Systolic 120 mmHg 03/15/2014 07:40 Most Recent VS BP Diastolic 72 mmHg 03/15/2014 07:40 Most Recent VS Respiratory Rate 18 bpm 03/15/2014 07:40 Most Recent VS Heart Rate 90 bpm 07:40 Most Recent VS O2 % BldC Oximetry 97 % 03/15/2014 07:40 Most Recent VS Body Temperature 97.6 degrees 03/15/2014 07:40 Most Recent VS Allergies Allergy Code Allergy Type Reaction Status NKDA - NO KNOWN DRUG ALLERGIES 0 Drug allergy Active Procedures Unknown or Not Available. History of Immunizations Unknown or Not Available. 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 Results BASIC METABOLIC - Collect Date/Time: 03/14/2014 07:40 Test Name Code Test Result Test Units Test Ref Range GLUCOSE 106 mg/dL L=70 H=110 BUN 26 mg/dL L=7 H=18 CREATININE 1.30 mg/ dL L=0.60 H=1.30 AGE 84 YEARS GFR 56.0 SODIUM 133 mmol/L L=136 H=145 POTASSIUM 4.0 mmol/ L L=3.5 H=5.1 CHLORIDE 94 mmol/L L=98 H=107 CO2 29 mmol/L L=21 H=32 CALCIUM 8.5 mg/dL L=8.5 H=10.1 BASIC METABOLIC - Collect Date/Time: 03/13/2014 07:20 Test Name Code Test Result Test Units Test Ref Range GLUCOSE 113 mg/dL L=70 H=110 BUN 18 mg/dL L=7 H=18 CREATININE 1.30 mg/ dL L=0.60 H=1.30 AGE 84 YEARS GFR 56.0 SODIUM 133 mmol/L L=136 H=145 POTASSIUM 3.4 mmol/ L L=3.5 H=5.1 CHLORIDE 97 mmol/L L=98 H=107 CO2 30 mmol/L L=21 H=32 CALCIUM 8.0 mg/dL L=8.5 H=10.1 COMP METABOLIC - Collect Date/Time: 03/15/2014 06:45 Test Name Code Test Result Test Units Test Ref Range GLUCOSE 102 mg/dL L=70 H=110 BUN 22 mg/dL L=7 H=18 CREATININE 1.10 mg/ dL L=0.60 H=1.30 AGE 84 YEARS GFR 67.9 SODIUM 134 mmol/L L=136 H=145 POTASSIUM 4.2 mmol/ L L=3.5 H=5.1 CHLORIDE 97 mmol/L L=98 H=107 CO2 32 mmol/L L=21 H=32 CALCIUM 8.3 mg/dL L=8.5 H=10.1 AST 22 U/L L=15 H=37 ALT 32 U/L L=12 H=78 ALKALINE PHOS 63 U/ L L=46 H=116 TOTAL PROTEIN 5.6 g/ dL L=6.4 H=8.2 ALBUMIN 2.2 g/dL L=3.4 H=5.0 TOTAL BILI 0.80 mg/ dL L=0.00 H=1.00 COMP METABOLIC - Collect Date/Time: 03/12/2014 15:15 Test Name Code Test Result Test Units Test Ref Range GLUCOSE 116 mg/dL L=70 H=110 BUN 20 mg/dL L=7 H=18 CREATININE 1.30 mg/ dL L=0.60 H=1.30 AGE 84 YEARS GFR 56.0 SODIUM 134 mmol/L L=136 H=145 POTASSIUM 4.0 mmol/ L L=3.5 H=5.1 CHLORIDE 96 mmol/L L=98 H=107 CO2 31 mmol/L L=21 H=32 CALCIUM 8.6 mg/dL L=8.5 H=10.1 AST 18 U/L L=15 H=37 ALT 32 U/L L=12 H=78 ALKALINE PHOS 61 U/ L L=46 H=116 TOTAL PROTEIN 6.5 g/ dL L=6.4 H=8.2 ALBUMIN 3.2 g/dL L=3.4 H=5.0 TOTAL BILI 1.10 mg/ dL L=0.00 H=1.00 CBC W/ DIFF - Collect Date/Time: 03/15/2014 06:45 Test Name Code Test Result Test Units Test Ref Range WBC 12.6 x10^3 L=4.8 H=10.8 RBC 3.83 x10^6 L=4.70 H=6.10 HEMOGLOBIN 10.6 g/ dL L=14.0 H=18.0 HEMATOCRIT 30.9 % L=42.0 H=52.0 MCV 81 fL L=80 H=100 MCH 27.6 pg L=27.0 H=33.0 MCHC 34.2 g/dL L=33.0 H=37.0 RDW 13.6 % L=11.5 H=14.5 PLATELETS 113 x10^3 L=150 H=450 MPV 10.0 fL L=7.8 H=11.0 NEUTROPHILS 86.0 % L=40.0 H=80.0 LYMPHOCYTES 7.4 % L=20.0 H=45.0 MONOCYTES 5.4 % L=0.0 H=10.0 EOSINOPHILS 0.3 % L=0.0 H=5.0 BASOPHILS 0.9 % L=0.0 H=2.0 SEG 78 %% L=40 H=80 BAND 0 %% L=0 H=5 LYMPH 14 %% L=20 H=45 MONO 8 %% L=0 H=10 EOS 0 %% L=0 H=5 BASO 0 %% L=0 H=2 ATYP LYMPH 0 %% L=0 H=10 META 0 %% L=0 H=1 REFLEX MAN DIFF YES N/A RBC MORPHOLOGY NORMAL N/A CBC W/ DIFF - Collect Date/Time: 03/14/2014 07:40 Test Name Code Test Result Test Units Test Ref Range WBC 17.7 x10^3 L=4.8 H=10.8 RBC 3.91 x10^6 L=4.70 H=6.10 HEMOGLOBIN 10.8 g/ dL L=14.0 H=18.0 HEMATOCRIT 32.1 % L=42.0 H=52.0 MCV 82 fL L=80 H=100 MCH 27.5 pg L=27.0 H=33.0 MCHC 33.6 g/dL L=33.0 H=37.0 RDW 14.0 % L=11.5 H=14.5 PLATELETS 102 x10^3 L=150 H=450 MPV 10.4 fL L=7.8 H=11.0 NEUTROPHILS 88.7 % L=40.0 H=80.0 LYMPHOCYTES 5.9 % L=20.0 H=45.0 MONOCYTES 5.1 % L=0.0 H=10.0 EOSINOPHILS 0.2 % L=0.0 H=5.0 BASOPHILS 0.1 % L=0.0 H=2.0 SEG 88 %% L=40 H=80 BAND 3 %% L=0 H=5 LYMPH 6 %% L=20 H=45 MONO 3 %% L=0 H=10 EOS 0 %% L=0 H=5 BASO 0 %% L=0 H=2 ATYP LYMPH 0 %% L=0 H=10 META 0 %% L=0 H=1 REFLEX MAN DIFF YES N/A RBC MORPHOLOGY NORMAL N/A CBC W/ DIFF - Collect Date/Time: 03/13/2014 07:20 Test Name Code Test Result Test Units Test Ref Range WBC 21.1 x10^3 L=4.8 H=10.8 RBC 4.19 x10^6 L=4.70 H=6.10 HEMOGLOBIN 11.4 g/ dL L=14.0 H=18.0 HEMATOCRIT 34.2 % L=42.0 H=52.0 MCV 82 fL L=80 H=100 MCH 27.2 pg L=27.0 H=33.0 MCHC 33.4 g/dL L=33.0 H=37.0 RDW 13.8 % L=11.5 H=14.5 PLATELETS 95 x10^3 L=150 H=450 MPV 10.9 fL L=7.8 H=11.0 NEUTROPHILS 88.5 % L=40.0 H=80.0 LYMPHOCYTES 5.6 % L=20.0 H=45.0 MONOCYTES 5.6 % L=0.0 H=10.0 EOSINOPHILS 0.0 % L=0.0 H=5.0 BASOPHILS 0.3 % L=0.0 H=2.0 SEG 82 %% L=40 H=80 BAND 3 %% L=0 H=5 LYMPH 6 %% L=20 H=45 MONO 9 %% L=0 H=10 EOS 0 %% L=0 H=5 BASO 0 %% L=0 H=2 ATYP LYMPH 0 %% L=0 H=10 META 0 %% L=0 H=1 REFLEX MAN DIFF YES N/A RBC MORPHOLOGY NORMAL N/A CBC W/ DIFF - Collect Date/Time: 03/12/2014 15:15 Test Name Code Test Result Test Units Test Ref Range WBC 21.5 x10^3 L=4.8 H=10.8 RBC 4.47 x10^6 L=4.70 H=6.10 HEMOGLOBIN 12.2 g/ dL L=14.0 H=18.0 HEMATOCRIT 36.9 % L=42.0 H=52.0 MCV 83 fL L=80 H=100 MCH 27.2 pg L=27.0 H=33.0 MCHC 33.0 g/dL L=33.0 H=37.0 RDW 13.9 % L=11.5 H=14.5 PLATELETS 122 x10^3 L=150 H=450 MPV 11.1 fL L=7.8 H=11.0 NEUTROPHILS 88.8 % L=40.0 H=80.0 LYMPHOCYTES 6.7 % L=20.0 H=45.0 MONOCYTES 4.5 % L=0.0 H=10.0 EOSINOPHILS 0.0 % L=0.0 H=5.0 BASOPHILS 0.0 % L=0.0 H=2.0 SEG 80 %% L=40 H=80 BAND 6 %% L=0 H=5 LYMPH 4 LC%% L=20 H=45 MONO 8 %% L=0 H=10 EOS 0 %% L=0 H=5 BASO 0 %% L=0 H=2 ATYP LYMPH 2 %% L=0 H=10 META 0 %% L=0 H=1 REFLEX MAN DIFF YES N/A RBC MORPHOLOGY NORMAL N/A PT/INR - Collect Date/Time: 03/15/2014 06:45 Test Name Code Test Result Test Units Test Ref Range PT 24.9 Secs L=9.6 H=11.2 INR 2.31 L=0.00 H=4.00 PT/INR - Collect Date/Time: 03/14/2014 07:40 Test Name Code Test Result Test Units Test Ref Range PT 33.8 Secs L=9.6 H=11.2 INR 3.10 L=0.00 H=4.00 PT/INR - Collect Date/Time: 03/13/2014 07:20 Test Name Code Test Result Test Units Test Ref Range PT 50.2 Secs L=9.6 H=11.2 INR 4.54 L=0.00 H=4.00 PT/INR - Collect Date/Time: 03/12/2014 15:15 Test Name Code Test Result Test Units Test Ref Range PT 75.5 Secs L=9.6 H=11.2 INR 6.71 L=0.00 H=4.00 Active Medications Medication Code Dose Units Frequency Route Modification Start Date/Time CEFTRIAXONE/NS IVPB: 1 GM/50 ML [id number] Q12H IVPB 03/13/2014 04:00 ~~ CEFTRIAXONE (ROCEPHIN) INJ :1 GRAM 228738 1 GM ~~ NS 50ML NON ADV 875744 50 ML Medications Administered During Visit Medication Dose Units Frequency Route Date/Time of Last Dose SALINE FLUSH 10ML SYRINGE : IV 10 ML BID IV PUSH 03/12/2014 16: 53 CEFTRIAXONE/NS IVPB: 1 GM/50 ML 1 GM Q12H IVPB 03/12/2014 16: 51 PANTOPRAZOLE (PROTONIX) TAB : 40MG 40 MG DAILY ORAL 03/15/2014 08:14 TAMSULOSIN (FLOMAX) CAP : 0.4MG 0.4 MG DAILY ORAL 03/15/2014 08 :14 ENALAPRIL MALEATE (VASOTEC) TAB : 5MG 5 MG QD PO 03/15/2014 08: 14 K (KLOR CON) TAB : 20 MEQ 20 MEQ DAILY ORAL 03/15/2014 08:14 SIMVASTATIN (ZOCOR) TAB : 20MG 20 MG DAILY/HS ORAL 03/14/2014 20:32 LORTAB 5-325 MG:TAB 2 TAB PRN Q6H PO 03/15/2014 00:21 FUROSEMIDE (LASIX)TAB:20 MG 40 MG QD PO 03/15/2014 08:14 CARVEDILOL (COREG) TAB : 3.125MG 6.25 MG BID PO 03/15/2014 09: 53 BACTROBAN (MUPIROCIN) OINT: 2 % 22 GM 1 DAVID TID TOPICAL 2013 08:14 CEFTRIAXONE/NS IVPB: 1 GM/50 ML 1 GM Q12H IVPB 03/15/2014 04: 00 DIGOXIN (LANOXIN) TAB :0.125MG 0.25 MG QD PO 03/15/2014 08:14 SALINE FLUSH 5ML SYRINGE IV 5 ML BID IV PUSH 03/15/2014 04:00 SALINE FLUSH 5ML SYRINGE IV 5 ML PRN IV PUSH 03/15/2014 04:48 MILK OF MAGNESIUM LIQ 400MG/5ML : 30ML 30 ML PRN QD PO 2013 22:11 CLOTRIMAZOLE 1% CRM : 1 DAVID BID TOPICAL 03/15/2014 09:53 BISACODYL (DULCOLAX) SUPP : 10MG 10 MG X1 RECTAL 03/15/2014 09: 54 Encounters Encounter Diagnosis Diagnosis Code Start Date CELLULITIS OF FOOT 6827 03/12/2014 Social History Smoking Status Code Start Date End Date Unknown if ever smoked [id number] Patient Decision Aids Unknown or Not Available. Discharge Instructions You were admitted to [facility] on 03/12/2014 with a principal diagnosis of CELLULITIS OF FOOT. You were discharged from [facility] on 03/15/2014. Should you have any questions prior to discharge, please contact a member of your healthcare team. If you have left the hospital and have any questions, please contact your primary care physician. Chief Complaint and Reason For Visit Chief Complaint Date of Onset DVT Function Status Unknown or Not Available. Plan of Care Unknown or Not Available. Referral/Transition of Care Unknown or Not Available.
--- OUTSIDE RECORDS SUMMARY | 2016-05-30 10:50 | XMS REPORT | CCD ---
Author Author HANSEL LANDAVERDE Organization Unknown Address [address] [place], [place] [id number] Phone 0 Care Team Providers Care Guide Domestic Tour Name Role Phone Harrison MURPHY Attending Physician [...] Date Status Cellulitis of right upper limb 776040089 03/27/2015 Active Methicillin resistant Staphylococcus aureus infection, unspecified site 050013870 03/31/2015 Active Elevated INR 847155631 03/31/2015 Active H/O: atrial fibrillation 299442664 2015 Active History of artificial heart valve 477164615 03/31/2009 Active Non Hodgkin lymphoma 086612488 Active Results CBC W/ DIFF - Collect Date/Time: 12/01/2015 09:15 Test Name Code Test Result Test Units Test Ref Range WBC 7.1 x10^3 L=4.8 H=10.8 RBC 4.06 x10^6 L=4.70 H=6.10 HEMOGLOBIN 10.6 g/ dL L=14.0 H=18.0 HEMATOCRIT 31.1 % L=42.0 H=52.0 MCV 77 fL L=80 H=100 MCH 26.1 pg L=27.0 H=33.0 MCHC 34.0 g/dL L=33.0 H=37.0 RDW 15.3 % L=11.5 H=14.5 PLATELETS 170 x10^3 L=150 H=450 MPV 7.9 fL L=7.8 H=11.0 NEUTROPHILS 81.3 % L=40.0 H=80.0 LYMPHOCYTES 12.3 % L=20.0 H=45.0 MONOCYTES 5.9 % L=0.0 H=10.0 EOSINOPHILS 0.4 % L=0.0 H=5.0 BASOPHILS 0.1 % L=0.0 H=2.0 REFLEX MAN DIFF NO N /A Active Medications Medication Code Dose Units Frequency Route Modification Start Date/Time Lisinopril 2.5MG Oral Tablet 445194 1 TABLET DAILY BY MOUTH 04/05/2015 12:39 Prescription Detail TAKE 1 TABLET BY MOUTH DAILY Coumadin 2MG Oral Tablet 133601 1 TABLET DAILY BY MOUTH 04/05/2015 12:36 Prescription Detail TAKE 1 TABLET BY MOUTH DAILY Mapap 325MG Oral Tablet [id number] 650 MILLIGRAMS PRN Q6H BY MOUTH 04/05/2015 12:36 Prescription Detail TAKE 650 MILLIGRAMS BY MOUTH PRN Q6H Protonix 40MG Oral Tablet, Enteric Coated 007878 40 MILLIGRAMS QD BY MOUTH 04/05/2015 12:36 Prescription Detail TAKE 40 MILLIGRAMS BY MOUTH QD Sulfamethoxazole/Trimethoprim 800MG-160MG Oral Tablet 410707 1 TABLET TWICE A DAY BY MOUTH 2015 12:36 Prescription Detail TAKE 1 TABLET BY MOUTH TWICE A DAY Carvedilol 6.25MG Oral Tablet 531052 6.25 MILLIGRAMS TWICE A DAY ORAL 04/02/2014 08:38 Prescription Detail 6.25 MILLIGRAMS ORAL TWICE A DAY Centrum Silver [id number] Oral Tablet 031874 1 EACH DAILY ORAL 04/02/2014 08:38 Prescription Detail 1 EACH ORAL DAILY Digoxin 0.25MG Oral Tablet 420914 0.25 MILLIGRAMS DAILY ORAL 04/02/2014 08:38 Prescription Detail 0.25 MILLIGRAMS ORAL DAILY Furosemide 40MG Oral Tablet 071455 40 MILLIGRAMS DAILY ORAL 04/02/2014 08:38 Prescription Detail 40 MILLIGRAMS ORAL DAILY Ocuvite [id number] Oral Tablet [id number] 1 EACH DAILY ORAL 04/02/2014 08:38 Prescription Detail 1 EACH ORAL DAILY Potassium Chloride 20MEQ Oral Tablet, Extended Release 790340 20 MEQ DAILY ORAL 04/02/2014 08:38 Prescription Detail 20 MEQ ORAL DAILY Simvastatin 20MG Oral Tablet 801139 20 MILLIGRAMS AT BEDTIME ORAL 04/02/2014 08:38 Prescription Detail 20 MILLIGRAMS ORAL AT BEDTIME Tamsulosin Hydrochloride 0.4MG Oral Capsule 467533 0.4 MILLIGRAMS DAILY ORAL 04/02/2014 08:38 Prescription Detail 0.4 MILLIGRAMS ORAL DAILY Medications Administered During Visit Unknown or Not Available. Encounters Encounter Diagnosis Diagnosis Code Start Date Other specified local infections of the skin and subcutaneous tissue L0889 12/01/2015 Social History Smoking Status Code Start Date End Date Unknown if ever smoked [id number] Patient Decision Aids Unknown or Not Available. Discharge Instructions You were admitted to [facility] on 12/01/2015 08:32 with a principal diagnosis of Oth local infections of the skin and subcutaneous tissu You had the following tests done: CBC W / DIFF You were discharged from [facility] on 12/01/2015 08:33 Should you have any questions prior to [...]
--- OUTSIDE RECORDS SUMMARY | 2016-05-30 10:50 | XMS REPORT | Referral Summary ---
Author Author [facility] Organization [facility] Address Unknown Phone Unavailable Care Team Providers Care Job Interviewer Name Role Phone Brian Marrero Primary Care Physician [phone] Encounter VC Date(s): 09/07/14 - 09/07/14 [facility] [address] [place] [address] [place] [address] Discharge Diagnosis: Arm skin lesion, right Discharge Diagnosis: Actinic keratosis Discharge Diagnosis: Skin lesion of scalp Discharge Disposition: 01-Home or Self Care Attending Physician: Meliton Martínez MD Referring Physician: Brian Marrero MD Vital Signs Most recent to 1 oldest [Reference Range]: Temperature Tympanic 36.6 degC [36.6-38.1 degC] (09/07/14 2:23 PM) Peripheral Pulse 60 bpm Rate [60-100 bpm] (09/07/14 2:23 PM) Respiratory Rate 20 br/min [14-20 br/min] (09/07/14 2:23 PM) Blood Pressure 130/76 mmHg [90-140/60-90 mmHg] (09/07/14 2:23 PM) Problem List Condition Effective Dates Status [...] 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 [...] 30 unknown unit, 1 Refill (s), eRx: [facility], Take 1 tablet by mouth [...] BEDTIME, # 30 caps, 2 Refill(s), eRx: [facility], TAKE 1 CAPSULE AT BEDTIME [...] PLEURX CATHETER PLACED BY DR. BAILEY IN [place] Pacemaker 1Basal cell carcinoma right forearm at [facility] 2to left ear, squamous cell ca, [...] a procedure done by a skin doctor (microphone boom operator or Mohs surgeon ) in his or [...] Released: 09/15/2003 Document Revised: 09/09/2012 Document Reviewed: [facility] Patient Information 2014 [employer]. No follow up information was provided. Extracted from: Title: Office Visit Note Author: Meliton Martínez MD Date: 09/07/14 Assessment/Plan Actinic keratosis Ordered: Office Visit Level 4 Est 82894 Arm skin lesion, right, Skin lesion of scalp Ordered: Office Visit Level 4 Est 70355 Plan: Cryotheraphy of actinic keratotic-appearing lesions upon scalp. Each lesion upon the scalp was treated in a standard freeze to thaw technique. A total of4 lesions were treated. Patient tolerated the procedure without difficulty. Patient was given routine cryotherapy instructions and informed to follow up with me if the areas of concern did not completely resolve over the next 6-8 weeks. Plan: Excision of suspicious ulcerated skin lesion of the scalp with possible rhomboid flap and possible split or full thickness skin graft. Excision of suspicious skin lesion from right forearm. I informed the patient his that unfortunately I was fairly certain that this larger ulcerated lesion involving the right parietal region was that of an underlying malignant process. I would therefore recommend that we proceed with excision of this suspicious, ulcerated skin lesion. The lesion is large enough I do not know whether or not a primary closure will be able to be completed. If the skin edges following his excisional biopsy are not able to be brought together one may need to proceed with skin grafting for possible rhomboid flap to provide closure. I would recommend that we excise these suspicious skin lesions in the preoperative area and submit it for pathologic evaluation to document that we have clear margins before proceeding with closure. I discussed what this would entail and its associated risk which included but was not inclusive of bleeding, infection, as well as potential loss of the graft. I would also recommend that we go ahead and excise this ulcerated lesion from the right proximal forearm at the same setting. I am confident that this excisional biopsy site will be able to be closed primarily. I also informed the patient that we would contact us oncologist to make sure that none of his chemotherapy agents are cytotoxic in nature and would inhibit would"wound healing". Patient understood and was scheduled.
--- OUTSIDE RECORDS SUMMARY | 2016-05-30 10:50 | XMS REPORT | Continuity of Care Document ---
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 - *Chronic Hypercholesterolemia - *Chronic Non-Hodgkins lymphoma - *Chronic Unspecified disorder of skin and subcutaneous tissue [...] Other malignant lymphomas, unspecified site - Chronic Unspecified disorder of skin and subcutaneous tissue - Uncertain Atrial Fibrillation - *Chronic Follow-up examination, following other surgery - *Acute Family History Family Member Diagnosis Age At Onset Status Father (Unknown) train accident age 40's Yes Mother (Unknown) CAD Yes Social History Social History Element Description Quantity Unknown Allergies, Adverse Reactions, Alerts Substance Reaction Severity Status Unknown Medications Medication Instructions Dosage Effective Dates (start - stop) Status eplerenone 25 mg tablet take 1 tablet [...] and faxed to Dr Manuel Cunningham @ [phone] DX: [phone] - Active Coumadin 2 mg tablet TAKE 2 TABS BY MOUTH EVERY DAY OR DIRECTED 2012 - Active lisinopril 2.5 mg tablet Take 1 tablet by mouth every day. - Active tamsulosin ER 0.4 mg capsule,extended release 24 hr Take 1 capsule by mouth at bedtime. - Active digoxin 250 mcg tablet Take 1 tablet by mouth every day. - Active Immunizations Vaccine Date Status Comments Unknown Results Test Name Date and Time Measure Units Reference Range Abnormal Flag Comments Unknown Vital Signs Date / Time: Height Weight Pulse Rate Blood Pressure Temperature /13:33:00 72.00 in 167.00 lbs 96.8 F Procedures Procedure Date Unknown Encounters Encounter Location Date Patient Visit [facility] Patient Visit [facility] Patient Visit [facility] Patient Visit [facility] Patient Visit [facility] Advance Directives Directive Effective Date Unknown
--- OUTSIDE RECORDS SUMMARY | 2016-05-30 10:51 | XMS REPORT | Referral Summary ---
Author Author [facility] Organization [facility] Address Unknown Phone Unavailable Care Team Providers Care Barge Engineer Name Role Phone Brian Marrero Primary Care Physician [phone] Encounter VC Date(s): 08/17/15 - 08/17/[address] [facility] [address] [facility] [address] [place], [place] [address] Discharge Disposition: 01-Home or Self Care Attending Physician: German Gallegos MD Referring Physician: Meliton Martínez MD Vital Signs Most recent to 1 oldest [Reference Range]: Blood Pressure 122/68 mmHg [90-140/60-90 mmHg] (08/17/15 9:58 AM) Mean Arterial 86 mmHg Pressure, Cuff (08/17/15 9:58 AM) Problem List Condition Effective Dates Status [...] 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 [...] 30 unknown unit, 1 Refill (s), eRx: [facility], Take 1 tablet by [...] BEDTIME, # 30 caps, 4 Refill(s), eRx: [facility], TAKE 1 CAPSULE AT [...] PLEURX CATHETER PLACED BY DR. BAILEY IN [place] Pacemaker 1Partial excision squamous cell carcinoma left mid pinna, margins remain involved, 2Basal cell carcinoma right forearm at [facility] 3to left ear, squamous cell ca, also excision basal cell cancers , bowels left scalp 4Squamous cell carcinoma in situ left upper arm 5CYSTO, URETHRAL IMAN, GREEN LIGHT LASER TURP Social History Social History Type Response Smoking Status Never smoker Assessment and Plan No data available for this section
--- OUTSIDE RECORDS SUMMARY | 2016-05-30 10:51 | XMS REPORT | Referral Summary ---
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 BAILEY IN [place] Pacemaker 1Partial excision squamous cell carcinoma left [...] Patient Education Author: Carla Grove LPN Date: ENT Wound Check If you have a wound, it may take some time to heal. Eventually, a scar will form. The scar will also fade with time. It is important to take care of your wound while it is healing. This helps to protect your wound from infection. HOW SHOULD I TAKE CARE OF MY WOUND AT HOME? Some wounds are allowed to close on their own or are repaired at a later date. There are many different ways to close and cover a wound, including stitches (sutures), skin glue, and adhesive strips. Follow your health care provider's instructions about: Wound care. Bandage (dressing) changes and removal. Wound closure removal. Take medicines only as directed by your health care provider. Keep all follow-up visits as directed by your health care provider. This is important. Do not take baths, swim, or use a hot tub until your health care provider approves. You may shower as directed by your health care provider. Keep your wound clean and dry. WHAT AFFECTS SCAR FORMATION? Scars affect each person differently. How your body scars depends on: The location and size of your wound. Traits that you inherited from your parents (genetic predisposition). How you take care of your wound. Irritation and inflammation increase the amount of scar formation. Sun exposure. This can darken a scar. WHEN SHOULD I CALL OR SEE MY HEALTH CARE PROVIDER? Call or see your health care provider if: You have redness, swelling, or pain at your wound site. You have fluid, blood, or pus coming from your wound. You have muscle aches, chills, or a general ill feeling. You notice a bad smell coming from the wound. Your wound separates after the sutures, john, or skin adhesive strips have been removed. You have persistent nausea or vomiting. You have a fever. You are dizzy. WHEN SHOULD I CALL 911 OR GO TO THE EMERGENCY ROOM? Call 911 or go to the emergency room if: You faint. You have difficulty breathing. This information is not intended to replace advice given to you by your health care provider. Make sure you discuss any questions you have with your health care provider. Document Released: 12/15/2004 Document Revised: 04/01/2015 Document Reviewed: [employer] Patient Information 2016 [facility]. No follow up information was provided.
--- OUTSIDE RECORDS SUMMARY | 2016-05-30 10:51 | XMS REPORT | Continuity of Care Document ---
Author Author [facility] Organization [facility] Address Unknown Phone Unavailable Support Name Relationship Address Phone JOSE MOLINA MD Caregiver [address] [facility] [address] [place] [address] Unavailable YUNG MARTINS Caregiver [address] [place] [address] Unavailable KING WHITESIDE Next Of Kin [address] [place] [address] Insurance Providers Guarantor Jacobo Whiteside Address [address] [place] [address] Email DENIED TO [facility] [employer] [place] Federal Policy Number [id number] Subscriber's Name Jacobo Whiteside Relationship 18 Self Group Number [id number] Payer Medicare Policy Number [id number] Subscriber's Name Jacobo Whiteside Relationship 18 Self Problems No problem information available. Medications Current Home Medications Medication Dose Units Route Directions Days Qty Instructions Start Date Carvedilol (Coreg) 3.125 Mg Tablet 3.125 Mg Oral Twice A Day 07/02 Digoxin 250 Mcg Tablet 250 Mcg Oral Give At Noon 12/26/09 Furosemide (Lasix) 40 Mg Tablet 40 Mg Oral Daily 12/26/09 Ibrutinib (Imbruvica) 140 Mg Capsule 3 Cap Oral Give At Noon 09/05 Lisinopril 2.5 Mg Tablet 2.5 Mg Oral Give At Noon 01/28/14 Multivits-Min/Fa/Lycopene/Lut (Centrum Silver Tablet) 1 Each Tablet 1 Tab Oral Daily 09/17/14 Potassium Chloride 20 Meq Tab.prt.sr 20 Meq Oral Daily 12/26/09 Ranitidine Hcl 150 Mg Tablet 150 Mg Oral Twice A Day 01/28/14 Simvastatin (Zocor) 20 Mg Tablet 20 Mg Oral Bedtime 12/26/09 Tamsulosin Hcl (Flomax) 0.4 Mg Cap.sr.24h 0.4 Mg Oral Bedtime 07/02 Vitamin B Complex 1 Each Tablet 1 Tab Oral Daily 09/17/14 Warfarin Sodium (Coumadin) 3 Mg Tablet 2 Mg Oral Daily 12/23/09 Past Home Medications Medication Directions Ordered Status Ascorbic Acid (Vitamin C) 500 Mg Capsule.sa, 250 Mg Oral Daily 07/25/09 Discontinued Aspirin (Aspir 81) 81 Mg Tablet.dr, 81 Mg Oral Daily 08/06/09 Discontinued Carvedilol (Coreg) 12.5 Mg Tablet, 12.5 Mg Oral Twice A Day 08/06/09 Discontinued Digoxin 250 Mcg/Ml Ampul, 250 Mcg Injection Daily 04/28/09 Discontinued Diltiazem Hcl (Diltiazem Er) 240 Mg Capsule.cr, 240 Mg Oral Daily 05/09/08 Discontinued Furosemide (Lasix) 40 Mg/4 Ml Inj, 40 Mg Injection Daily 04/28/09 Discontinued [id number] Mcg (Lanoxin) , 125 Mcg Oral Daily 05/09/08 Discontinued Magnesium 200 Mg Tablet, 200 Mg Oral Twice A Day 08/06/09 Discontinued Magnesium 250 Mg Tablet, 250 Mg Oral Daily 08/06/09 Discontinued Multivitamins W-Minerals/Lut (Centrum Silver Tablet) 1 Tab Tablet, 0.5 Tab Oral Daily 08/06/09 Discontinued Spironolactone 25 Mg Tablet, 25 Mg Oral Daily 12/26/09 Discontinued Sulfamethoxazole/Trimethoprim (Septra Ds Tablet) 1 Tab Tablet, 1 Tab Oral Twice A Day 07/25/09 Discontinued Warfarin Sodium (Coumadin) 2 Mg Tablet, 2 Mg Oral Every Other Day 12/23/09 Discontinued Warfarin Sodium (Coumadin) 2 Mg Tablet, 1 Tab Oral Daily 08/06/09 Discontinued Warfarin Sodium (Coumadin) 3 Mg Tablet, 2 Mg Oral Daily 04/28/09 Discontinued Social History Social History Problem Response Recorded Date/Time Onset Date Status Hx Substance Use No 08/12/2015 9:55am Not Applicable Not Applicable Hx Alcohol Use Y OCCASIONAL WINE 3X/WEEK 08/12/2015 12:47pm Not Applicable Not Applicable Has the pt used tobacco in the last 12 months No 03/14/2016 1:00pm Not Applicable Not Applicable Hospital Discharge Instructions Current inpatient/outpatient. Discharge instructions are currently unavailable. Plan of Care Current inpatient/outpatient. The plan of care is currently unavailable Functional Status No functional status results. Allergies, Adverse Reactions, Alerts Allergen Type Severity Reaction Status Last Updated No Known Drug Allergies Allergy Unknown Active 08/20/10 Immunizations Query Response on File Recorded Date/Time Hx Influenza Vaccination Y fall 201403/14/16 1:00pm Hx Pneumococcal Vaccination Y 200803/14/16 1:00pm Hx Influenza Vaccination Y fall 201403/14/16 1:00pm Vital Signs Acute Vital Signs Vital Response Date/Time Height (Feet) 5 feet 03/14/2016 1:00pm Height (Inches) 10.50 inches 03/14/2016 1:00pm Results Microbiology Results Procedure Source Organism/Result Collection Date/Time Result Date/Time Result Status WOUND CULTURE DEEP TISS-AER/AN Unknown S. AUREUS, METH-RESISTANT 2015 10:20am 12/31/2015 9:28am Final WOUND CULTURE DEEP TISS-AER/AN Ear, External (Pinna), Left S. AUREUS, METH- RESISTANT 03/07/2016 10:09am 03/16/2016 7:00am Final SERRATIA MARCESCENS 03/07/2016 10:09am 03/16/2016 7:00am Final COAG NEGATIVE STAPHYLOCOCCUS 03/07/2016 10:09am 03/16/2016 7:00am Final Fungal Culture Wound, Non-Surgical, Head NO FUNGUS ISOLATED AT 1 WEEK 2015 9:57am 03/14/2016 9:39am Preliminary WOUND CULTURE DEEP TISS-AER/AN Head S. AUREUS, METH-RESISTANT 03/14/2016 11 :15am 03/19/2016 8:27am Final SERRATIA MARCESCENS 03/14/2016 11:15am 03/19/2016 8:27am Final Fungal Culture Wound, Non-Surgical, Left Ear CULTURE INITIATED - RESULTS PENDING 03/14/2016 11:15am 03/14/2016 11:37am Preliminary Name: JACOBO WHITESIDE Unit #: [id number] : 1930 Sex: M Admit Date: Loc / Svc: ROBERTO CARLOS Discharge Date: DIAGNOSTIC IMAGING REPORT Report #: [id number] [facility] CESAR [place] Indication:ITS.REASON: S01.302 open wound of left ear; B95.62; M86.9 Procedure:FLUOROSCOPY CHEST PICC LINE PLACEMENT CHECK: Technique: The patient arrived in the imaging department with a right-sided PICC line. Fluoroscopic imaging of the patient's chest was obtained to confirm the location of the distal tip of the patient's PICC line. Findings: The examination is negative. The tip of the catheter is located near the cavoatrial junction. The catheter is appropriately located for use. Impression: The tip of the existing right-sided PICC line appears to be located near the cavoatrial junction. The PICC line should be acceptable for use. Fluoroscopy dose: 27.70 mGy (Cumulative air kerma) Felix Lemus RPA/RRA performed this under my personal supervision. . Procedures Procedure Status Date Provider(s) NEG PRESS WOUND TX </=50 CM Completed 12/26/15 943811"OSTOMY SKIN BARRIER, PECTIN-BASED, PASTE, PER OUNCE" Completed [id number] Completed 12/26/15 558551"EQUAL TO 48 SQ. IN., WITHOUT ADHESIVE BORDER, EACH DR Completed 506648"ADHESIVE BORDER, EACH DRESSING" Completed 12/26/15 E&M LEVEL - FACILITY Completed 12/26/15 CHEMICAL CAUTERY TISSUE Completed 12/29/15 CULTURE OTHR SPECIMN AEROBIC Completed 12/29/15 CULTR BACTERIA EXCEPT BLOOD Completed 12/29/15 SMEAR GRAM STAIN Completed 12/29/15 NEG PRESS WOUND TX </=50 CM Completed 12/29/15 217277"CONVEXITY, EACH" Completed 12/29/15 [id number] Completed 12/29/15 850039"EQUAL TO 48 SQ. IN., WITHOUT ADHESIVE BORDER, EACH DR Completed 279679"ADHESIVE BORDER, EACH DRESSING" Completed 12/29/15 E&M LEVEL - FACILITY Completed 12/29/15 NEG PRESS WOUND TX </=50 CM Completed 01/02/16 [id number] Completed 01/02/16 891670"ADHESIVE BORDER, EACH DRESSING" Completed 01/02/16 E&M LEVEL - FACILITY Completed 01/02/16 NEG PRESS WOUND TX </=50 CM Completed 01/04/16 NEG PRESS WOUND TX </=50 CM Completed 01/06/16 379062"BORDER, EACH DRESSING" Completed 01/06/16 293919"EQUAL TO 48 SQ. IN., WITHOUT ADHESIVE BORDER, EACH DR Completed 535138"ADHESIVE BORDER, EACH DRESSING" Completed 01/06/16 NEG PRESS WOUND TX </=50 CM Completed 01/09/16 722250"ADHESIVE BORDER, EACH DRESSING" Completed 01/09/16 NEG PRESS WOUND TX </=50 CM Completed 01/12/16 569946"ADHESIVE BORDER, EACH DRESSING" Completed 01/12/16 NEG PRESS WOUND TX </=50 CM Completed 01/16/16 NEG PRESS WOUND TX </=50 CM Completed 01/19/16 [id number] Completed 01/19/16 481961"ADHESIVE BORDER, EACH DRESSING" Completed 01/19/16 [id number] ITEM OR SERVICE Completed 01/19/16 NEG PRESS WOUND TX </=50 CM Completed 01/23/16 [id number] Completed 01/23/16 919454"BORDER, EACH DRESSING" Completed 01/23/16 979893"ADHESIVE BORDER, EACH DRESSING" Completed 01/23/16 E&M LEVEL - FACILITY Completed 01/23/16 CHEMICAL CAUTERY TISSUE Completed 01/26/16 NEG PRESS WOUND TX </=50 CM Completed 01/26/16 630922"ADHESIVE BORDER, EACH DRESSING" Completed 01/26/16 NEG PRESS WOUND TX </=50 CM Completed 01/30/16 425471"BORDER, EACH DRESSING" Completed 01/30/16 465644"EQUAL TO 48 SQ. IN., WITHOUT ADHESIVE BORDER, EACH DR Completed 836341"ADHESIVE BORDER, EACH DRESSING" Completed 01/30/16 NEG PRESS WOUND TX </=50 CM Completed 02/02/16 779330"ADHESIVE BORDER, EACH DRESSING" Completed 02/02/16 NEG PRESS WOUND TX </=50 CM Completed 02/06/16 [id number] Completed 02/06/16 696141"ADHESIVE BORDER, EACH DRESSING" Completed 02/06/16 NEG PRESS WOUND TX </=50 CM Completed 02/09/16 [id number] Completed 02/09/16 147144"ADHESIVE BORDER, EACH DRESSING" Completed 02/09/16 E&M LEVEL - FACILITY Completed 02/09/16 [id number] Completed 02/15/16 E&M LEVEL - FACILITY Completed 02/15/16 Encounters Encounter Location Arrival/Admit Date Discharge/Depart Date Attending Provider Discharged [facility] 03/21/16 2:30pm 03/24/16 11:28pm JOSE MOLINA MD Registered [facility] 03/21/16 2:13pm JOSE MOLINA MD [facility] 03/21/16 10:14am JOSE MOLINA MD Registered [facility] 03/14/16 10:11am JOSE MOLINA MD Registered [facility] 03/07/16 9:22am JOSE MOLINA MD Registered [facility] 02/23/16 9:48am EDUARDO BOSS MD Registered [facility] 02/15/16 10:24am JOSE MOLINA MD [facility] 02/09/16 9:19am MICHELLE DEL TORO MD [facility] 02/06/16 2:36pm MICHELLE DEL TORO MD Registered [facility] 02/02/16 1:50pm MICHELLE DEL TORO MD [facility] 01/30/16 2:43pm MICHELLE DEL TORO MD [facility] 01/26/16 9:47am MICHELLE DEL TORO MD [facility] 01/23/16 2:52pm MICHELLE DEL TORO MD [facility] 01/19/16 9:19am MICHELLE DEL TORO MD Registered [facility] 01/16/16 3:00pm MICHELLE DEL TORO MD Registered [facility] 01/12/16 10:26am MICHELLE DEL TORO MD Registered [facility] 01/09/16 10:39am MICHELLE DEL TORO MD Registered [facility] 01/06/16 10:01am MICHELLE DEL TORO MD [facility] 01/04/16 9:14am MICHELLE DEL TORO MD [facility] 01/02/16 3:15pm MICHELLE DEL TORO MD [facility] 12/29/15 9:46am MICHELLE DEL TORO MD Registered [facility] 12/26/15 2:19pm MICHELLE DEL TORO MD
--- OUTSIDE RECORDS SUMMARY | 2016-05-30 10:51 | XMS REPORT | Continuity of Care Document ---
Author Author [facility] Organization [facility] Address Unknown Phone Unavailable Support Name Relationship Address Phone ARIS LEA FACS, MD Caregiver [address] [place] [address] [place] [id number] Unavailable YUNG MARTINS Caregiver [address] [place] [address] Unavailable KING WHITESIDE Next Of Kin [address] [facility] [address] [place] [id number] Insurance Providers Guarantor Jacobo Whiteside Address [address] [address] [address] [facility] [address] [facility] Federal Policy Number [id number] Subscriber's Name Jacobo Whiteside Relationship 18 Self Group Number [id number] Effective Date 00 Payer Medicare Policy Number [id number] Subscriber's Name Jacobo Whiteside Relationship 18 Self Effective Date 96 Advance Directives Directive Response Recorded Date/Time Ordered Resuscitation Status Full Code 08/11/15 12:23pm Resuscitation Documents on File Yes 08/12/15 9:56am DPOA for Healthcare Only Yes 08/12/15 9:56am Problems No problem information available. Medications Current [...] Inj, 40 Mg Injection Daily 04/28/09 Discontinued [id number] Mcg (Lanoxin) , 125 Mcg Oral Daily [...] Problem Response Recorded Date/Time Onset Date Status Chewing Tobacco Status No 08/12/2015 9:55am Not Applicable Not Applicable Hx Substance Use No 08/12/2015 9:55am Not Applicable Not Applicable Hx Alcohol Use Y OCCASIONAL WINE 3X/WEEK 08/12/2015 12:47pm Not Applicable Not Applicable Has the pt used tobacco in the last 12 months No 08/12/2015 9:55am Not Applicable Not Applicable Query Response Start Date Stop Date Smoking Status Never smoker Hospital Discharge Instructions No hospital discharge instructions. Plan of Care Discharge Date 08/12/15 5:35pm Prescriptions See Medication Section Functional Status No functional status results. Allergies, Adverse Reactions, Alerts Allergen Type Severity Reaction Status Last Updated No Known Drug Allergies Allergy Unknown Active 08/20/10 Immunizations Query Response on File Recorded Date/Time Hx Influenza Vaccination Y fall 201408/12/15 9:55am Hx Pneumococcal Vaccination Y 200808/12/15 9:55am Hx Influenza Vaccination Y fall 201408/12/15 9:55am Vital Signs Acute Vital Signs Vital Response Date/Time Temperature (Fahrenheit) 97.3 deg F (96.8 - 99.1) 08/12/2015 4:48pm Temperature (Calculated Celsius) 36.85107 degrees C (36.0 - 37.3) 08/12/2015 4:48pm Temperature Source Temporal 08/12/2015 4:48pm Pulse Rate (adult) 64 bpm (60 - 100) 08/12/2015 5:30pm Respiratory Rate 16 breaths/min (10 - 20) 08/12/2015 5:30pm O2 Sat by Pulse Oximetry 98 % (90 - 100) 08/12/2015 5:30pm Oxygen Delivery Method Room Air 08/12/2015 5:30pm Blood Pressure 123/65 mm Hg 08/12/2015 5:30pm Blood Pressure Source Automatic Cuff 08/12/2015 5:30pm Height (Feet) 5 feet 08/12/2015 9:37am Height (Inches) 10.50 inches 08/12/2015 9:37am Weight (Kilograms) 70.500 kg 08/12/2015 9:37am Body Mass Index (BMI) 22.0 08/12/2015 9:37am Results Laboratory Results Test Name Result Units Flags Reference Collection Date/Time Result Date/ Time Comments White Blood Count 8.1 T/MM3 4.5-11.0 08/12/2015 9:35am 08/12/2015 9: 41am Red Blood Count 4.81 M/MM3 4.50-5.90 08/12/2015 9:35am 08/12/2015 9: 41am Hemoglobin 13.1 GM/DL L 13.5-17.5 08/12/2015 9:35am 08/12/2015 9:41am Hematocrit 41.0 % 41-53 08/12/2015 9:3508/12/2015 9:41am Mean Corpuscular Volume 85.2 UM3 80-100 08/12/2015 9:35am 08/12/2015 9: 41am Mean Corpuscular Hemoglobin 27.2 UUG 26-34 08/12/2015 9:35am 2015 9:41am Mean Corpuscular Hemoglobin Concent 32.0 GM/DL 31-37 08/12/2015 9:3508/12/2015 9:41am RDW Standard Deviation 44.5 FL 36.9-50.2 08/12/2015 9:35am 08/12/2015 9 :41am Platelet Count 121 T/MM3 L 130-400 08/12/2015 9:35am 08/12/2015 9:41am Mean Platelet Volume 11.3 UM3 9.4-12.4 08/12/2015 9:35am 08/12/2015 9: 41am Neutrophils (%) (Auto) 78.9 % H 33-66 08/12/2015 9:35am 08/12/2015 9: 41am Lymphocytes (%) (Auto) 14.5 % L 23-45 08/12/2015 9:3508/12/2015 9: 41am Monocytes (%) (Auto) 5.9 % 0-9.0 08/12/2015 9:3508/12/2015 9:41am Eosinophils (%) (Auto) 0.4 % 0-4 08/12/2015 9:35am 08/12/2015 9:41am Basophils (%) (Auto) 0.1 % 0-2 08/12/2015 9:3508/12/2015 9:41am Immature Granulocyte % (Auto) 0.2 % 0.0-0.5 08/12/2015 9:352015 9:41am Absolute Neutrophils (auto) 6.4 T/MM3 1.8-7.7 08/12/2015 9:35am 2015 9:41am Absolute Lymphocytes (auto) 1.2 T/MM3 1-4.8 08/12/2015 9:35am 2015 9:41am Absolute Monocytes (auto) 0.5 T/MM3 0-0.8 08/12/2015 9:35am 08/12/2015 9:41am Absolute Eosinophils (auto) 0.0 T/MM3 0-0.5 08/12/2015 9:35am 2015 9:41am Absolute Basophils (auto) 0.0 T/MM3 0-0.2 08/12/2015 9:35am 08/12/2015 9:41am Absolute Immature Granulocyte (auto 0.02 T/MM3 0.00-0.03 08/12/2015 9: 35am 08/12/2015 9:41am Prothromb Time International Ratio 1.11 H 0.81-1.09 08/12/2015 9:3508/12/2015 9:46am THERAPUTIC RANGE=2.00-3.00 FOR ANTI-THROMBOSIS THERAPUTIC RANGE=2.50-3.50 FOR IMPLANTED VALVE Icterus Index < 2 0-7 08/12/2015 9:35am 08/12/2015 9:50am Chemistry Specimen Hemolysis < 15 0-25 08/12/2015 9:35am 08/12/2015 9 :50am 0-25: Specimen Exhibited No Hemolysis. Turbidity < 20 0-20 08/12/2015 9:35am 08/12/2015 9:50am Sodium Level 137 MEQ/L 134-144 08/12/2015 9:3508/12/2015 9:50am Potassium Level 4.3 MEQ/L 3.6-5 08/12/2015 9:3508/12/2015 9:50am Chloride Level 96 MEQ/L L 98-107 08/12/2015 9:35am 08/12/2015 9:50am Carbon Dioxide Level 32 MEQ/L H 22-30 08/12/2015 9:35am 08/12/2015 9: 50am Anion Gap 9 MEQ/L 5-15 08/12/2015 9:35am 08/12/2015 9:50am Blood Urea Nitrogen 23.0 MG/DL H 9-08/12/2015 9:35am 08/12/2015 9: 50am Creatinine 1.2 MG/DL 0.8-1.5 08/12/2015 9:35am 08/12/2015 9:50am BUN/Creatinine Ratio 19 RATIO 6-26 08/12/2015 9:35am 08/12/2015 9:50am Glomerular Filtration Rate Calc 58 08/12/2015 9:35am 08/12/2015 9: 50am Glucose Level 88 MG/DL 75-110 08/12/2015 9:35am 08/12/2015 9:50am Calculated Osmolality 267 MOSM/KG 261-280 08/12/2015 9:35am 08/12/2015 9:50am Calcium Level 8.9 MG/DL 8.4-10.2 08/12/2015 9:35am 08/12/2015 9:50am Name: JACOBO WHITESIDE Unit #: [id number] : 1930 Sex: M Admit Date: Loc / Svc: SCU Discharge Date: DIAGNOSTIC IMAGING REPORT Report #: [id number] [place], [place] Indication: ITS.REASON: Left arm swelling for one year, evaluate for DVT PROCEDURE: US VENOUS DUPLEX, UPPER EXT LT: Encounter: Initial Comparison: None Technique: Color Doppler duplex and grayscale sonographic imaging of the left upper extremity was performed. FINDINGS: There is no evidence for acute deep venous thrombosis in the left arm. The left internal jugular, subclavian, axillary and paired brachial veins were evaluated; compression and augmentation were applied where possible. In addition, color and pulsed Doppler demonstrate appropriate spontaneous flow, cardiac pulsatility and variation with respiration. Prominent left neck lymph nodes are noted incidentally. IMPRESSION: No evidence of acute DVT in the left upper extremity. Left neck adenopathy. . Procedures Procedure Status Date Provider(s) Excision, lesion Completed 08/12/15 ARIS LEA MD, FACS, CWS Encounters Encounter Location Arrival/Admit Date Discharge/Depart Date Attending Provider Departed [facility] 08/12/15 9:09am 08/12/15 5: 35pm ARIS LEA FACS, MD
[2016-05-30 11:02] LABS: BASOPHILS % (AUTO) 0.8 % (0-2); EOSINOPHILS # (AUTO) 0.1 T/MM3 (0-0.5); EOSINOPHILS % (AUTO) 2.1 % (0-4); HCT - HEMATOCRIT 35.5 % (41-53); HGB - HEMOGLOBIN 11.2 GM/DL (13.5-17.5); IMMATURE GRANULOCYTE # (AUTO) 0.01 T/MM3 (0.00-0.03); IMMATURE GRANULOCYTE % (AUTO) 0.3 % (0.0-0.5); LYMPHOCYTES % (AUTO) 26.7 % (23-45); MEAN CORPUSCULAR HGB 26.3 UUG (26-34); MEAN CORPUSCULAR HGB CONC(MCHC 31.5 GM/DL (31-37); MEAN CORPUSCULAR VOLUME 83.3 UM3 (80-100); MEAN PLATELET VOLUME 10.4 UM3 (9.4-12.4); MONOCYTES # (AUTO) 0.2 T/MM3 (0-0.8); MONOCYTES % (AUTO) 5.7 % (0-9.0); NEUTROPHILS #(AUTO)-ABSOLUTE 2.5 T/MM3 (1.8-7.7); NEUTROPHILS % (AUTO) 64.4 % (33-66); RED BLOOD COUNT 4.26 M/MM3 (4.50-5.90); WBC - WHITE BLOOD COUNT 3.9 T/MM3 (4.5-11.0)
[2016-05-30 11:24] LABS: INR 2.99 (0.76-1.04); PROTHROMBIN TIME 32.6 SEC (9.31-12.49)
--- NOTE | 2016-05-30 11:56 | ANESPREOP ---
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 Proposed Surgical Procedure PLACEMENT OF FULL THICKNESS SKINGRAFT TO LF POST AURICULAR MASTOID NPO since: MN Allergies: Coded Allergies: No Known Drug Allergies (Verified Allergy, Unknown, 05/30/16) Ht/Wt/BMI Height: 6 ' 0.00 " Weight: 67.900 kg BMI: 20.3 kg/m2 Vital Signs Date Time Temp Pulse Resp B/P Pulse Ox O2 Delivery O2 Flow Rate FiO2 05/30/16 10:38 98.1 80 17 141/72 99 Room Air Medications Inpatient Medications Current Medications Medications (Trade) Dose Ordered Sig/Major Start Time Stop Time Status Last Admin Dose Admin Lactated Ringer's (Lactated Ringers) 1,000 ml @ 50 mls/hr Q20H 05/30/16 07:00 Midazolam HCl (Versed) 0.5-3MG IV PUSH EVERY 10 JEFERSON... Q10MIN PRN 05/30/16 07:00 Fentanyl (Fentanyl) 25-50 MCG IV PUSH PRN NOT... PRN PRN 05/30/16 07:00 Carvedilol (Coreg) 3.125 Mg Tablet, 3.125 MG PO BID, (Reported) Last Taken: on 05/30/16 0700 Digoxin (Digoxin) 250 Mcg Tablet, 250 MCG PO NOON, (Reported) Last Taken: on 05/29/16 1100 Furosemide (Lasix) 40 Mg Tablet, 40 MG PO DAILY, (Reported) Last Taken: on 05/29/16 0700 Multivits-Min/FA/Lycopene/Lut (Centrum Silver Tablet) 1 Each Tablet, 1 TAB PO DAILY, (Reported) Last Taken: on 05/29/16 0700 Potassium Chloride (Potassium Chloride) 20 Meq Tab.prt.sr, 20 MEQ PO DAILY, (Reported) Last Taken: on 05/29/16 0700 Ranitidine HCl (Ranitidine HCl) 150 Mg Tablet, 150 MG PO BID PRN for ACID REFLUX, (Reported) Last Taken: on 05/29/16 1900 Simvastatin (Zocor) 20 Mg Tablet, 20 MG PO HS, ( Reported) Last Taken: on 05/29/16 0700 Sulfamethoxazole/Trimethoprim (Bactrim Ds Tablet ) 1 Each Tablet, 1 TAB PO BID, (Reported) Take 1 tablet, by mouth, 2 times a day. Last Taken: on 05/29/162199 Tamsulosin Hcl (Flomax) 0.4 Mg Cap.sr.24h, 0.4 MG PO HS, (Reported) Last Taken: on 05/29/162199 Vitamin B Complex (Vitamin B Complex) 1 Each Tablet, 1 TAB PO DAILY, (Reported) Last Taken: on 05/29/16 0700 Warfarin Sodium (Coumadin) 3 Mg Tablet, 2 MG PO DAILY, (Reported) Last Taken: on 05/29/162199 Currently on Beta Ritu: Yes Beta Ritu Last Taken: Coreg this AM Medical/Surgical History Anesthesia PMH: Reports: *Hypertension (TAKES MEDS), CHF, Cancer (NON-HODGKINS LYMPHOMA; BCC FACE AND ARMS), Pacemaker (PPM/AICD), Reflux, Denies: *Angina, * Diabetes, *Dyspnea, *TX, Anesthesia Reactions (NO AIRWAY ISSUES KNOWN), Arthritis, Asthma, Blood Transfusion Reac, COPD, CVA/Stroke/TIA, Clotting Problems (ON COUMADIN), Deep Vein Thrombosis, Glaucoma (BILATERAL MACULAR DEGENERATION), Headaches, Hepatitis, Hiatal Hernia, Malignant Hyperthermia, Pneumonia, Renal Disease, Rheumatic Fever, Seizures, Sleep Apnea, Thyroid Disease, Tuberculosis Smoking Status: Former smoker (quit 50 yr ago) Has pt. smoked today?: No Use Chewing Tobacco?: No Substance Use Type: does not use Alcohol Intake: none Past Surgical History Orthopedic Surgeries: No Abdominal Surgeries: Yes - LT ING HERNIA Genitourinary Surgeries: No Cardiac Surgeries: Yes - CABG, PACEMAKER Endocrine Surgeries: No Reproductive Surgeries: No Neurological Surgeries: No Ear Surgeries: No Nose Surgeries: No Throat Surgeries: No Other Surgeries: Yes - SKIN GRAFT, LESIONS REMOVED, CATARACT EXTRACTION Anesthesia Adverse Reactions: FOUND none Family Hx of Anesthesia Advers: none Hx of Motion Sickness: No Other Med/Surg Hx CABG Pertinent Findings Laboratory Tests 05/30/16 10:51 Test 05/30/16 10:51 Prothromb Time International Ratio 2.99 (0.76-1.04) EKG Rhythm: Paced EKG Ectopy: PVC Physical Exam Respiratory: Lungs clear Cardiovascular: FOUND Regular rate, rhythm, FOUND Pacemaker, FOUND AICD Airway Assessment Mallampati Score: III TMD: 2 Fingerbreadths Neck Extension: Fair Overall Assessment: May Be Diff Intubation ASA: 3 Plan Anesthesia Plan: TIVA, LMA, GETA, MAC Discussion Discussed risks/options/alternatives of anesthesia and questions answered. Patient consents. Nursing pain assessment noted. Attestation Statement Prior to the delivery of any anesthetic medication, I examined the patient, developed the plan, obtained the patient's consent and discussed the risk and benefits of the procedure with the patient/guardian. KATIA ANSARI VEHICLE MODIFICATION TECHNICIAN STUDENT May 30, 2016 11:51
[2016-05-30] MEDS ORDERED: LIDOCAINE 1%/EPI 1:100,000 20ml MDV ONE (12:38)
[2016-05-30] MEDS ORDERED: MIDAZOLAM 2mg/2ml INJECTION ONE (12:51)
[2016-05-30] MEDS ORDERED: FENTANYL 100mcg/2ml INJECTION ONE (12:51)
[2016-05-30 13:35] VITALS: BP 139/69; PULSE 65; RESP 12; TEMP 97; O2SAT 97
[2016-05-30] MEDS ORDERED: ACET1TAB12 PO (13:40)
--- NOTE | 2016-05-30 13:43 | PDPROCED ---
Procedure Note Date 05/30/16 Procedure Name FTSG to chronic open wound left ear status post extensive resection of SCC: Graft 2.5x1 cm Procedure Detail Preop dx: Chronic open wound of left ear status post extensive resection of SCC , use of NPWT Postop dx: Same Anesthesia: MAC Case: Clean contaminated EBL: Less than 15 ml Complications: None MICHELLE DEL TORO MD May 30, 2016 13:43
[2016-05-30] MEDS ORDERED: ATROPINE 1mg/10ml Syringe IV PRN (13:45)
[2016-05-30] MEDS ORDERED: ONDANSETRON 4mg/2ml INJECTION IV PRN (13:45)
[2016-05-30] MEDS ORDERED: HYDROCODONE/APAP 5 mg/325 mg TABLET PO PRN (13:45)
--- NOTE | 2016-05-30 13:46 | ANESPO ---
Post-Op Note Date 05/30/16 Time: 13:45 Status Pt Participated in Evaluation: Pt participated in person Vital Signs Date Time Temp Pulse Resp B/P Pulse Ox O2 Delivery O2 Flow Rate FiO2 05/30/16 13:35 97.0 65 12 139/69 97 Room Air Respiratory Function: Airway patent, Regular respirations Cardiovascular Function: Regular pulse Telemetry Pattern: Paced Mental Status: Alert/oriented Pain Level Intensity: 0 Hydration: IV infusing Complications during Recovery None apparent Follow-Up Instructions Instructions Per Surgeon CAITLYN AMADO CRNA May 30, 2016 13:46
[2016-05-30 13:50] VITALS: BP 121/63; PULSE 62; RESP 16; O2SAT 96
[2016-05-30 14:05] VITALS: BP 119/73; PULSE 66; RESP 17; O2SAT 97
[2016-05-30 14:20] VITALS: BP 128/61; PULSE 63; RESP 20; O2SAT 97
[2016-05-30 14:35] VITALS: BP 125/64; PULSE 60; RESP 19; O2SAT 97
[2016-05-30] MEDS ORDERED: MINERAL OIL 10 ML VIAL TOP ONE (18:00)
--- NOTE | 2016-05-31 10:05 | OPNOTEF ---
DATE OF PROCEDURE 05/30/2016 PREOPERATIVE DIAGNOSIS Chronic open wound of left ear, status post extensive resection of squamous cell carcinoma and use of negative-pressure wound therapy. POSTOPERATIVE DIAGNOSIS Chronic open wound of left ear, status post extensive resection of squamous cell carcinoma and use of negative-pressure wound therapy. OPERATION Full-thickness skin graft to chronic open wound, left ear: Graft size was 2.5 x 1 cm. SURGEON An Pitt MD ANESTHESIA MAC INDICATIONS The patient is an 86-year-old man who was referred by the wound care center at [facility] for evaluation and management of an open wound of his left ear and scalp status post resection of an extensive squamous cell carcinoma. At the present, [facility] sees the patient for dressing changes three times weekly. Please see the patient's previous operative reports for the details of his previous surgeries. On October 06, 2015, Dr. Barker performed a subtotal excision of the left external ear with complete resection of the left cartilaginous external ear canal, parotidectomy without facial nerve dissection, excision of deep scalp and temporalis muscle, and extension of the SCCA with fasciocutaneous and muscle flap reconstruction, complex closure, and repair of the full-thickness ear remnant. Postoperatively, the wound began to drain and was MRSA positive. He had NPWT placed at the end of November which was recently discontinued for Hydrofera blue. The patient had been receiving IV Rocephin 2 g daily is now on oral Bactrim. On exam, he had a 2.5 x 1 cm residual granulating wound of the posterior ear which was opened through into the ear canal. Despite continued use of the Hydrofera blue, the wound remained and it was thus deemed advisable to proceed with a full -thickness skin graft. The risks, benefits and alternatives were reviewed with the patient including, although not limited to, bleeding, infection, poor or keloid scarring, partial or complete loss of the graft. The patient understood and wished to proceed. Medical clearance was obtained from Dr. Marrero and Dr. Judy Arnold. DESCRIPTION OF PROCEDURE The patient was marked preoperatively and then brought to the operating room where, after suitable IV sedation, the face, ear and neck were prepped and draped in the usual sterile manner. The involved areas were then infiltrated with 1% lidocaine with epinephrine. A full-thickness skin graft was then harvested from the left neck, defatted, and then in-set into the defect using Xeroform and Hydrofera blue as a bolster as the wound was not amenable to suturing. The donor site was closed in two layers using interrupted buried sutures of 5-0 Vicryl and then running 5-0 nylon. Benzoin and Steri-Strips were applied as well as a dry sterile dressing and Mefix tape. The patient was then brought to the recovery room in stable condition. Estimated blood loss was less than 15 mL. The case was clean-contaminated. There were no specimens. THIEROND
== END 2016-05-30 14:48 | disposition home or self-care (01) ==
LOC: SCU 10:15
PROVIDERS: ATTEND Surgery Plastic and Reconstructive Surgery
DX: T81.4XXA Infection following a procedure, initial encounter (principal); B95.62 Methicillin resistant Staphylococcus aureus infection as the cause of diseases classified elsewhere; Y83.8 Other surgical procedures as the cause of abnormal reaction of the patient, or of later complication, without mention of misadventure at the time of the procedure; Y92.9 Unspecified place or not applicable; Z79.01 Long term (current) use of anticoagulants
CPT/HCPCS: 15260; 36415; 85025; 85610; A6222; A9270; J0690; J2250; J3010; J7120

== ENCOUNTER → 2016-06-06 | Outpatient (CLI) | payer MEDICARE, BC ==
[~2016-06-06] MED LIST changes: +ACET1TAB12 PO; -CEFAZOLIN 1 GRAM INJECTION IV ONE; -FENTANYL 100mcg/2ml INJECTION IV PRN; -LIDOCAINE 1% (10mg/ml) 2ml SDV INJ ONE; -LR 1,000 ML IV SCH; -MIDAZOLAM 5mg/5ml INJECTION IV PRN
--- NOTE | 2016-06-06 15:50 | WOUNDPNF ---
DATE June 06, 2016 CHIEF COMPLAINT Followup for osteomyelitis of the cranium. HISTORY OF PRESENT ILLNESS Mr. Johnson is an 86-year-old man with a history of skin cancer excised in September 2015 from the left ear. Following that surgery his wound did not heal. He has been following with Dr. Pitt and the [place] wound-healing center since December 2015. He had a wound VAC applied to the wound since approximately December 25. He has had several wound cultures that grew methicillin-resistant Staph aureus sensitive to clindamycin, doxycycline, gentamicin, linezolid, tetracycline, Bactrim and vancomycin. He was started on IV vancomycin in November although his vancomycin troughs were subtherapeutic. I saw him initially February 14 and increased his vancomycin to target a trough level of 15-20. He tolerated that without problems. The wound developed some blackish discoloration. He had another wound culture March 07 which showed few gram-positive cocci in pairs on the Gram stain and it grew Serratia marcescens and methicillin-resistant Staph aureus. On March 17 part of the bone that was exposed and noted to have some black discoloration was removed from the wound and this grew Serratia marcescens and methicillin-resistant Staph aureus. Pathology from that revealed osteomyelitis. He was started on Bactrim March 14. On March 21 his IV antibiotic was changed to ceftriaxone 2 g IV daily and he was continued on Bactrim. He completed six weeks of ceftriaxone on May 02. I continued him on oral Bactrim. He had some leukopenia noted which was thought to be related to the ceftriaxone. I last saw him May 16 and continued him on oral Bactrim. He underwent skin grafting procedure on approximately May [address] Pitt. He comes in for followup and denies any specific complaints. PAST MEDICAL HISTORY, PAST SURGICAL HISTORY, SOCIAL HISTORY, FAMILY HISTORY, ALLERGIES, MEDICATIONS Reviewed. REVIEW OF SYSTEMS He denies any fevers, chills, sweats, nausea, vomiting or diarrhea. He denies any pain. Denies any drainage from his wound. PHYSICAL EXAMINATION VITAL SIGNS: Temperature 97.2, blood pressure 134/77, pulse 80, respirations 12. Weight is 147 pounds. GENERAL: He appears comfortable and is in no acute distress. HEENT: Pupils are equal, round, reactive to light. His left ear is almost completely surgically missing. There is a skin graft over the wound posterior to the pinna on the left ear. This appears to have taken nicely. There is a very small area of scabbing noted superiorly. The wound appears clean without any redness or drainage. He has some dark discoloration in the ear canal which might be dried blood. NECK: Supple. HEART: Regular rate and rhythm. He has a 3/6 systolic ejection murmur. LUNGS: Clear to auscultation bilaterally anteriorly. ABDOMEN: Soft, nontender. He has bowel sounds present. EXTREMITIES: Notable for chronic lymphedema left upper extremity. He has 1+ pitting edema to the lower extremities bilaterally. NEUROLOGIC: He is [id number]-[id number] but in general has a nonfocal neuro exam. He is alert and oriented x 3. Speech is normal. SKIN: No rashes. He has a wound on the top of his scalp which is healing. PSYCHIATRIC: Mood and affect are appropriate. IMPRESSION 1. Osteomyelitis of the cranium, acute, with bone culture from March 14, 2016 growing MRSA and Serratia marcescens. 2. Leukopenia and thrombocytopenia, improved, suspect secondary to ceftriaxone. 3. History of nonhealing postoperative wound left ear, with multiple previous wound cultures growing methicillin-resistant Staph aureus, treated with IV vancomycin from November through February followed by oral Bactrim and he was treated with six weeks of ceftriaxone through May 02, 2016. 4. Status post excision of skin cancer involving left ear October 06, 2015. 5. Status post aortic valve replacement. 6. Status post pacemaker placement. 7. Remote history of non-Hodgkin's lymphoma treated with Rituxan and more recently on ibrutinib oral chemotherapy, currently on hold, followed by Dr. Lim. 7. Hypogammaglobulinemia, on IVIG infusions every six weeks. 8. Atrial fibrillation on chronic anticoagulation. 9. Coronary artery disease. RECOMMENDATIONS I would continue his oral Bactrim one double-strength tablet p.o. b.i.d. for one more week which would complete two weeks after his skin graft. His skin graft looks very good today. I will have him follow up with Dr. Pitt and follow up with me as needed. I also instructed him to have his INR checked within about three days of stopping the Bactrim. [facility]
== END ==
LOC: NWCC 09:46
PROVIDERS: ATTEND Internal Medicine Infectious Disease
DX: T81.89XA Other complications of procedures, not elsewhere classified, initial encounter (principal); Y83.8 Other surgical procedures as the cause of abnormal reaction of the patient, or of later complication, without mention of misadventure at the time of the procedure; Z85.828 Personal history of other malignant neoplasm of skin; R60.1 Generalized edema; M86.18 Other acute osteomyelitis, other site; I48.91 Unspecified atrial fibrillation; Z79.01 Long term (current) use of anticoagulants; I25.10 Atherosclerotic heart disease of native coronary artery without angina pectoris; D80.1 Nonfamilial hypogammaglobulinemia; Z87.898 Personal history of other specified conditions; Z86.14 Personal history of Methicillin resistant Staphylococcus aureus infection
CPT/HCPCS: A6207; G0463